=== PATIENT | female | born 1950 | race Caucasian/White ===

== ENCOUNTER 2018-01-23 18:04 | Emergency (ER) | payer MEDICARE, OTHER ==
[2018-01-23 18:47] LABS: CHLORIDE,CL 106 mmol/L (98-107); SODIUM,NA 143 mmol/L (136-145)
[2018-01-23] MEDS: Ondansetron 4 MG Tab.DIS PO ONE (19:03)
[2018-01-23] MEDS: Metoprolol Tartrate 25 MG Tab PO ONE (19:03)
[2018-01-23] MEDS: Ketorolac 60 MG/2 ML SDV IM ONE (19:04)
--- NOTE | 2018-01-23 19:15 | EDM.PDOC ---
ED HPI GENERAL MEDICAL PROBLEM - General Chief Complaint: General Stated Complaint: headache, high blood pressure Time Seen by Provider: 01/23/18 18:45 Source of Information: Reports: Patient History Limitations: Reports: No Limitations - History of Present Illness INITIAL COMMENTS - FREE TEXT/NARRATIVE: Patient comes in to ER complaining of headache and elevated BP. Has had similar headaches to this in the past and they too were associated with increased BP. Improved after staring BP medications. Also has chronic headaches related to cervical/neck issues. Recent neck surgery earlier this year. Headache is "all over". BP was running 150s-160s/100-115 Noted to slowly elevate all day. Headache and loose stools yesterday. She was wondering if she had developed mild viral illness. Mild nausea today. Took [place] last night and headache improved. Newcastle did not help headache today. Is performing colonoscopy prep today and thus continues to have loose stools. Unable to eat normally due to prep. Is not certain she took her blood pressure medication this morning. Denies focal neuro changes/numbness/tingling. No fevers/chills. No cold symptoms/cough/respiratory changes. Does have chronic neck/back issues but these are unchanged. No urinary changes. Feels this is her "usual" headache associated with elevated BP. No new changes in headache presentation. 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 Headache Pain Score (Numeric/FACES): 7 - Related Data Allergies Allergy/AdvReac Type Severity Reaction Status Date / Time oxycodone HCl [From Percocet] Allergy Tachycardia Verified 01/23/18 18:31 pentazocine lactate Allergy Tachycardia Verified 01/23/18 18:31 [From Talwin] propoxyphene HCl Allergy Tachycardia Verified 01/23/18 18:31 [From Darvon] propoxyphene napsylate Allergy Tachycardia Verified 01/23/18 18:31 [From Darvocet-N 100] Home Meds: Home Meds RX: Atenolol [Tenormin] 50 mg PO QAM 04/05/14 [History] RX: Lisinopril 10 mg PO QAM 04/05/14 [History] RX: Meloxicam 15 mg PO QAM 04/05/14 [History] RX: Omeprazole [Prilosec] 20 mg PO BID 04/05/14 [History] RX: Sennosides [Senna] 1 tab PO QAM 04/05/14 [History] RX: Magnesium Oxide 400 mg PO BID #60 tablet 04/07/14 [Rx] Mirabegron [Myrbetriq] 25 mg PO DAILY 01/23/18 [History] Past Medical History HEENT History: Reports: Impaired Vision Cardiovascular History: Reports: Blood Clots/VTE/DVT, High Cholesterol, Hypertension Gastrointestinal History: Reports: GERD Genitourinary History: Reports: Other (See Below) Other Genitourinary History: Overactive bladder Musculoskeletal History: Reports: Back Pain, Chronic, Neck Pain, Chronic, RA Endocrine/Metabolic History: Reports: Obesity/BMI 30+ - Past Surgical History GI Surgical History: Reports: Colonoscopy, Hernia Repair/Other Musculoskeletal Surgical History: Reports: Other (See Below) Other Musculoskeletal Surgeries/Procedures:: Back decompression 2016. neck surgery Jun 2017 Social & Family History - Tobacco Use Smoking Status *Q: Never Smoker - Caffeine Use Caffeine Use: Reports: Coffee, Soda - Recreational Drug Use Recreational Drug Use: No ED ROS GENERAL - Review of Systems Review Of Systems: ROS reveals no pertinent complaints other than HPI. ED EXAM, GENERAL - Physical Exam Exam: See Below Exam Limited By: No Limitations General Appearance: Alert, WD/WN, No Apparent Distress Eye Exam: Bilateral Eye: EOMI, PERRL Ears: Normal External Exam, Normal Canal, Hearing Grossly Normal, Other (TMs show scars from previous infections. No erythema/fluid noted. ) Nose: No: Nasal Deformity, Nasal Swelling, Nasal Drainage Throat/Mouth: Normal Inspection, Normal Lips, Normal Voice, No Airway Compromise , Other (missing several teeth) Head: Atraumatic, Normocephalic Neck: Normal Inspection, Supple, Non-Tender, Full Range of Motion Respiratory/Chest: No Respiratory Distress, Lungs Clear, Normal Breath Sounds, No Accessory Muscle Use Cardiovascular: Normal Peripheral Pulses, Regular Rate, Rhythm, No Murmur Peripheral Pulses: 2+: Radial (L), Radial (R) GI/Abdominal: Normal Bowel Sounds, Soft, Non-Tender, No Distention (Female) Exam: Deferred Rectal (Female) Exam: Deferred Back Exam: No: CVA Tenderness (L), CVA Tenderness (R), Muscle Spasm, Paraspinal Tenderness, Vertebral Tenderness Extremities: Normal Range of Motion, Non-Tender, Normal Capillary Refill, Pedal Edema (mild edema lower legs, left slightly more than right. ). No: Buck's Sign, Leg Pain, Redness Neurological: Alert, Oriented, CN II-XII Intact, Normal Cognition, Normal Reflexes, No Motor/Sensory Deficits Psychiatric: Normal Affect, Normal Mood Skin Exam: Warm, Dry, Intact, Normal Color Course - Vital Signs Last Recorded V/S: Last Vital Signs Temp 36.6 C 01/23/18 18:05 Pulse 63 01/23/18 19:47 Resp 18 01/23/18 18:05 BP 154/95 H 01/23/18 19:47 Pulse Ox 97 01/23/18 19:47 - Orders/Labs/Meds Labs: Laboratory Tests 01/23/18 01/23/18 01/23/18 Range/Units 18:21 18:25 18:25 WBC 8.5 (4.0-10.2) K/uL RBC 4.07 (3.77-5.09) M/uL Hgb 13.1 D (11.7-15.5) g/dL Hct 38.8 (34.0-46.0) % MCV 95.3 D (84.0-98.0) fL MCH 32.2 (28.2-33.3) pg MCHC 33.8 (31.7-36.0) g/dL RDW 12.1 (11.2-14.1) % Plt Count 228 (150-350) K/uL Neut % (Auto) 54.1 (45.0-80.0) % Lymph % (Auto) 33.1 (10.0-50.0) % [place] % (Auto) 10.8 (2.0-14.0) % Eos % (Auto) 1.5 (0.0-5.0) % Baso % (Auto) 0.5 (0.0-2.0) % Neut # (Auto) 4.57 (1.40-7.00) K/uL Lymph # (Auto) 2.80 (0.50-3.50) K/uL [place] # (Auto) 0.91 (0.00-1.00) K/uL Eos # (Auto) 0.13 (0.00-0.50) K/uL Baso # (Auto) 0.04 (0.00-0.20) K/uL Sodium 143 (136-145) mmol/L Potassium 3.9 (3.5-5.1) mmol/L Chloride 106 (98-107) mmol/L Carbon Dioxide 25.9 (21.0-32.0) mmol/L BUN 14 (7-18) mg/dL Creatinine 0.91 (0.51-1.17) mg/dL Est Cr Clr Drug Dosing 57.70 mL/min Estimated GFR (MDRD) > 60 mL/min Glucose 99 (74-106) mg/dL Calcium 9.3 (8.5-10.1) mg/dL Magnesium (1.8-2.4) mg/dL Total Bilirubin 0.5 (0.2-1.0) mg/dL AST 25 (15-37) U/L ALT 31 (12-78) U/L Alkaline Phosphatase 67 (46-116) IU/L Total Protein 7.4 (6.4-8.2) g/dL Albumin 3.8 (3.4-5.0) g/dL Specimen Type Urinvoid Urine Color Light yellow Urine Appearance Clear Urine pH 6.0 (5.0-9.0) Ur Specific [place] <= 1.005 (1.005-1.030) Urine Protein Negative (NEGATIVE) mg/dL Urine Glucose (UA) Negative (NEGATIVE) mg/dL Urine Ketones Negative (NEGATIVE) mg/dL Urine Occult Blood Negative (NEGATIVE) Urine Nitrite Negative (NEGATIVE) Urine Bilirubin Negative (NEGATIVE) Urine Urobilinogen 0.2 (0.2-1.0) E.U./dL Ur Leukocyte Esterase Negative (NEGATIVE) Urine RBC 0-5 /HPF Urine WBC Not seen /HPF Ur Epithelial Cells Rare /LPF Urine Bacteria Rare (NONE TO FEW) /HPF 01/23/18 Range/Units 18:25 WBC (4.0-10.2) K/uL RBC (3.77-5.09) M/uL Hgb (11.7-15.5) g/dL Hct (34.0-46.0) % MCV (84.0-98.0) fL MCH (28.2-33.3) pg MCHC (31.7-36.0) g/dL RDW (11.2-14.1) % Plt Count (150-350) K/uL Neut % (Auto) (45.0-80.0) % Lymph % (Auto) (10.0-50.0) % [place] % (Auto) (2.0-14.0) % Eos % (Auto) (0.0-5.0) % Baso % (Auto) (0.0-2.0) % Neut # (Auto) (1.40-7.00) K/uL Lymph # (Auto) (0.50-3.50) K/uL [place] # (Auto) (0.00-1.00) K/uL Eos # (Auto) (0.00-0.50) K/uL Baso # (Auto) (0.00-0.20) K/uL Sodium (136-145) mmol/L Potassium (3.5-5.1) mmol/L Chloride (98-107) mmol/L Carbon Dioxide (21.0-32.0) mmol/L BUN (7-18) mg/dL Creatinine (0.51-1.17) mg/dL Est Cr Clr Drug Dosing mL/min Estimated GFR (MDRD) mL/min Glucose (74-106) mg/dL Calcium (8.5-10.1) mg/dL Magnesium 1.8 (1.8-2.4) mg/dL Total Bilirubin (0.2-1.0) mg/dL AST (15-37) U/L ALT (12-78) U/L Alkaline Phosphatase (46-116) IU/L Total Protein (6.4-8.2) g/dL Albumin (3.4-5.0) g/dL Specimen Type Urine Color Urine Appearance Urine pH (5.0-9.0) Ur Specific [place] (1.005-1.030) Urine Protein (NEGATIVE) mg/dL Urine Glucose (UA) (NEGATIVE) mg/dL Urine Ketones (NEGATIVE) mg/dL Urine Occult Blood (NEGATIVE) Urine Nitrite (NEGATIVE) Urine Bilirubin (NEGATIVE) Urine Urobilinogen (0.2-1.0) E.U./dL Ur Leukocyte Esterase (NEGATIVE) Urine RBC /HPF Urine WBC /HPF Ur Epithelial Cells /LPF Urine Bacteria (NONE TO FEW) /HPF Meds: Medications Discontinued Medications Generic Name Dose Route Start Last Admin Trade Name Freq PRN Reason Stop Dose Admin Ketorolac Tromethamine 60 mg 01/23/18 18:56 01/23/18 19:04 Toradol IM 01/23/18 18:57 60 mg ONETIME ONE Administration Metoprolol Tartrate 25 mg 01/23/18 18:57 01/23/18 19:03 Lopressor PO 01/23/18 18:58 25 mg ONETIME ONE Administration Ondansetron HCl 4 mg 01/23/18 18:56 01/23/18 19:03 Zofran Odt PO 01/23/18 18:57 4 mg ONETIME ONE Administration - Re-Assessments/Exams Free Text/Narrative Re-Assessment/Exam: 01/23/18 19:19 Headache and BP improved on own once patient was resting on ER bed. BP noted to get more elevated when staff conversed with her. Headache now a "7". Patient given Toradol, Zofran, and Lopressor. Allowed to rest/observed. Free Text/Narrative Re-Assessment/Exam: 01/23/18 20:04 Patient feels improved. Headache is down to a 4. Able to void. BP improving. Uncertain if pt forgot her BP meds this morning. May have mild viral illness contributing to headache given loose stools and headache experienced yesterday. Headache and BP elevation likely exacerbated by having to undergo colonscopy prep throughout today and being unable to eat. Precautions reviewed prior to discharge. Departure - Departure Time of Disposition: 20:11 Disposition: Home, Self-Care 01 Condition: Good Clinical Impression: HTN, Benign essential hypertension - Discharge Information *PRESCRIPTION DRUG MONITORING PROGRAM REVIEWED*: Not Applicable *COPY OF PRESCRIPTION DRUG MONITORING REPORT IN PATIENT BRIANA: Not Applicable Instructions: Metoprolol tablets, Ondansetron oral dissolving tablet, Ketorolac injection Referrals: Edwina Ramirez PA-C [Primary Care Provider] - Forms: ED Department Discharge Additional Instructions: It is OK to continue with your prep for colonoscopy as directed. Follow up otherwise as needed if symptoms return.
[2018-01-23 20:04] VITALS: BP 154/95
== END 2018-01-23 20:22 | disposition home or self-care (01) ==
LOC: LL.ED 18:04
DX: I10 Essential (primary) hypertension (principal); E66.9 Obesity, unspecified; Z88.8 Allergy status to other drugs, medicaments and biological substances; Z79.899 Other long term (current) drug therapy
CPT/HCPCS: 36415; 80053; 81001; 83735; 85025; 96372; 99284; A9270-GY; J1885

== ENCOUNTER 2020-08-30 10:01 | Observation (INO) | payer MEDICARE, OTHER ==
[2020-08-30] MEDS ORDERED: Sodium Chloride 0.9% 10 ML Syringe FLUSH PRN ×2 (10:13→13:08)
[2020-08-30] MEDS ORDERED: Famotidine 20 MG/2 ML SDV IVPUSH ONE (10:13)
--- NOTE | 2020-08-30 10:13 | EDM.PDOC ---
ED HPI GENERAL MEDICAL PROBLEM - General Chief Complaint: General Stated Complaint: headache,diaphoresis,HTN Time Seen by Provider: 08/30/20 10:05 Source of Information: Reports: Patient, Old Records ([facility] chart/EMR), Other ([place] EMR) History Limitations: Reports: No Limitations - History of Present Illness INITIAL COMMENTS - FREE TEXT/NARRATIVE: The patient was brought to the emergency room by her friend, Audra, for evaluation of nonspecific 6/10 epigastric cramping associated with moderate diaphoresis, nausea, dizziness, and just not feeling well since about 10 PM yesterday evening. She did not check her blood sugars at home with no other hypoglycemic type symptoms. As a precaution the patient did take 2 sugar pills about 1 hour prior to arrival. The patient denies any chest pain/pressure, heart flutter, orthostasis, orthopnea, paresthesias, recent decreased exercise tolerance, or any other anginal-type symptoms. She has not taken her morning medications to this point. She also complains of a bilateral frontal headache. No history of recent visual changes, diplopia, change in mental status, or other change in neurological status. No recent history of abdominal pain, heartburn, emesis, diarrhea, melena, gross hematochezia, or any food intolerance, including fatty foods, etc. with a normal bowel movement earlier this morning. No history of colic, gross hematuria, or other UTI symptoms. The patient also denies any recent fever, cough, wheezing, dyspnea, etc.. Onset: Gradual Onset Date: 08/29/20 Onset Time: 10:00 Duration: Constant, Getting Worse Location: Reports: Head, Abdomen. Denies: Face, Neck, Chest, Back, Pelvis, Upper Extremity, Left, Upper Extremity, Right, Radiates to Quality: Reports: Same as Previous Episode, Other (As above) Severity: Moderate Improves with: Reports: None Worsens with: Reports: None Context: Reports: Other (As above). Denies: Sick Contact, Trauma Associated Symptoms: Reports: Diaphoresis, Headaches, Nausea/Vomiting (No emesis). 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: Other (see below) (None) - Related Data Allergies Allergy/AdvReac Type Severity Reaction Status Date / Time amoxicillin Allergy Rash Verified 08/30/20 11:27 oxycodone HCl [From Percocet] Allergy Tachycardia Verified 08/30/20 11:27 pentazocine lactate Allergy Tachycardia Verified 08/30/20 11:27 [From Talwin] propoxyphene HCl Allergy Tachycardia Verified 08/30/20 11:27 [From Darvon] propoxyphene napsylate Allergy Tachycardia Verified 08/30/20 11:27 [From Darvocet-N 100] Home Meds: Home Meds Lisinopril 10 mg PO QAM 04/05/14 [History] Meloxicam 15 mg PO QAM 04/05/14 [History] Omeprazole [Prilosec] 20 mg PO DAILY 04/05/14 [History] Sennosides [Senna] 1 tab PO QAM 04/05/14 [History] atenoloL [Tenormin] 50 mg PO QAM 04/05/14 [History] Magnesium Oxide 400 mg PO BID #60 tablet 04/07/14 [Rx] Gabapentin [Neurontin] 600 mg PO BID@0800,1600 03/28/18 [History] Methotrexate 4 tab PO Q7D@0800 03/28/18 [History] Cholecalciferol (Vitamin D3) [Vitamin D3] 25 mcg PO DAILY 08/30/20 [History] Folic Acid 0.4 mg PO DAILY 08/30/20 [History] Gabapentin [Neurontin] 900 mg PO BEDTIME 08/30/20 [History] Golimumab [Simponi] 50 mg SUBCUT Q30D 08/30/20 [History] Rosuvastatin [Crestor] 10 mg PO BEDTIME 08/30/20 [History] Vitamin E 400 unit PO DAILY 08/30/20 [History] Past Medical History HEENT History: Reports: Allergic Rhinitis, Impaired Vision, Other (See Below). Denies: Cataract, Glaucoma, Hard of Hearing, Macular Degeneration, Otitis Media, Retinal Detachment Other HEENT History: Patient wears glasses. Cardiovascular History: Reports: Blood Clots/VTE/DVT, High Cholesterol, Hypertension, PVD, Other (See Below). Denies: Afib, Aneurysm, Arrhythmia, CAD, Cardiomyopathy, Heart Failure, Heart Murmur, IL, Syncope Other Cardiovascular History: Dyslipidemia. History of postoperative DVT and right-sided PE in 2014 after extensive abdominal surgeries as below with subsequent Coumadin therapy however not currently. Subsequent chronic D-dimer elevation with negative work-up. Varicose veins. Respiratory History: Reports: Intubation, Previous, PE, Other (See Below). 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 Right-sided PE in 2014 as above. Gastrointestinal History: Reports: Bowel Obstruction, Cholelithiasis, Chronic Constipation, GERD, Other (See Below). Denies: Celiac Disease, Chronic Diarrhea, Colon Polyp, Diverticulosis, Gastritis, GI Bleed, Hepatitis, Hiatal Hernia, Inflammatory Bowel Disease, Irritable Bowel Syndrome, Jaundice, Bowers creatitis, PUD Other Gastrointestinal History: Recurrent small bowel obstructions requiring surgery as below. Genitourinary History: Reports: Urinary Incontinence, Other (See Below). Denies: Acute Renal Failure, Chronic Renal Insuffiency, Renal Calculus, Retention, Urinary, STD, UTI, Recurrent Other Genitourinary History: Mixed stress and urinary urge incontinence requiring surgeries as below. FILLING LAYER UP History: Reports: Dysfunctional Uterine Bleeding, Fibroids, . Denies: Endometriosis, Spontaneous : 4 Para: 4 LMP (Approximate): Other (See Below) Other FILLING LAYER UP History: Surgical menopause at age 42 secondary to dysfunctional uterine bleeding. Full term without complications during pregnancies or deliveries Musculoskeletal History: Reports: Arthritis, Back Pain, Chronic, Neck Pain, Chronic, Osteoarthritis, RA, Other (See Below). Denies: Amputation, Fracture, Gout, SLE Other Musculoskeletal History: Lumbar stenosis Neurological History: Reports: Headaches, Chronic, Neuropathy, Peripheral, Other (See Below). Denies: Cerebral Aneurysms, CVA, Head Trauma, Migraines, MS, Neuropathy, Diabetic, Parkinson's, Seizure, TIA, Vertigo Other Neuro History: Benign kinetic tremor. Psychiatric History: Reports: Addiction, Anxiety, Depression. Denies: Abuse, Victim of, ADD, ADHD, Psych Hospitalization(s), PTSD, Suicide Attempt, Suicidal Ideation Other Psychiatric History: Chronic narcotic use secondary to her rheumatoid arthritis. Endocrine/Metabolic History: Reports: Diabetes, Type II, Hypokalemia, Hypomagnesemia, Obesity/BMI 30+. Denies: Diabetes, Gestational, Diabetes, Type I, Diabetes Mellitus, Type 3c, Hypothyroidism, IDDM Hematologic History: Reports: Anemia. Denies: Blood Transfusion(s), Iron Deficiency Immunologic History: Reports: None. Denies: AIDS, HIV, SLE Oncologic (Cancer) History: Reports: Basal Cell Carcinoma, Other (See Below). Denies: Bladder, Breast, Cervix, Colon, Hodgkin's Lymphoma, Leukemia, Lymphoma, Malignant Melanoma, Non-Hodgkin's Lymphoma, Ovarian, Squamous Cell Carcinoma, Uterine Other Oncologic History: Recurrent basal cell carcinoma. Dermatologic History: Reports: None. Denies: Eczema, Psoriasis - Infectious Disease History Infectious Disease History: Reports: Chicken Pox, Helicobacter Pylori, Measles, Mumps, Novel Coronavirus (April 2020 with patient having received both of her Moderna subsequent immunizations last in July 2020.), Rubella. Denies: C- Difficile, Meningitis, Mononucleosis, MRSA, Pertussis (Whooping Cough), Scarlet Fever, Shingles, TB, VRE - Past Surgical History Head Surgeries/Procedures: Reports: None HEENT Surgical History: Reports: Naso-Sinus Surgery, Oral Surgery, Tonsillectomy, Other (See Below). Denies: Adenoidectomy, Cataract Surgery, Laser Surgery, LASIK, Myringotomy w Tube(s) Other HEENT Surgeries/Procedures: Multiple teeth extractions with partial upper dentures. Rhinoplasty at 43 years of age. Tonsillectomy at 19 years of age. Cardiovascular Surgical History: Reports: None. Denies: Varicose Respiratory Surgical History: Reports: None. Denies: Thoracentesis GI Surgical History: Reports: Cholecystectomy, Colonoscopy, EGD, Hernia, Abdominal, Lysis of Adhesions, Small Bowel, Other (See Below). Denies: Appendectomy, Hernia, Inguinal, Hernia Repair/Other, Polypectomy Other GI Surgeries/Procedures: Open cholecystectomy in 1989. Robotic assisted bilateral salpingo-oophorectomy with partial ileum dissection on 02/03/2015. Subsequent initial laparoscopic had been open abdominal adhesiolysis and small bowel resection on 02/05/2014 requiring subsequent abdominal wound closure on 02/12/2014. Ventral abdominal hernia repair on 07/30/2014. Last colonoscopy on 01/24/2018. EGD with negative biopsy on 04/04/2018. Ventral hernia repair on 07/30/2014. Female Surgical History: Reports: Hysterectomy, Salpingo-Oophorectomy, Tubal Ligation, Other (See Below). Denies: Section Other Female Surgeries/Procedures: Hysterectomy secondary to dysfunctional uterine bleeding at age 42. Bilateral salpingo-oophorectomy on 02/12/2014 as above. Bilateral tubal ligation at age 32. Phase 1 Interstim urethral neurostimulator on 06/10/2018 with subsequent phase II neurostimulator revisions on 06/26/2018 and 05/19/2020. Endocrine Surgical History: Reports: None. Denies: Thyroid Biopsy Neurological Surgical History: Reports: C-Spine, Discectomy, Laminectomy, Lumbar Spine, Spinal Fusion, Other (See Below). Denies: Sacral Spine, Thoracic Spine, Vertebroplasty Other Neurological Surgeries/Procedures: L3-L5 decompression including laminectomy and discectomy on 01/22/2017. C5-C7 anterior cervical fusion on 06/18/2017. Musculoskeletal Surgical History: Reports: Arthroscopic Knee, Arthroscopic Procedure, Carpal Tunnel, Ganglion Cyst, Shoulder Surgery, Other (See Below). Denies: Joint Replacement, ORIF Other Musculoskeletal Surgeries/Procedures:: Left knee medial partial meniscectomy arthroscopically on 06/26/2018. Left thumb arthroplasty on 03/09/2020. Right hand second, third, and fourth trigger finger release on 08/23/2015. Left hand third, fourth, and fifth trigger finger releases on 02/23/2015. Right shoulder arthroscopic surgery on 05/22/2002. Right carpal tunnel release in 2007 with left carpal tunnel release in June 2008. Previous right first finger arthroplasty and left hand ganglion cyst excision. Oncologic Surgical History: Reports: None Dermatological Surgical History: Reports: Skin Biopsy, Other (See Below) Other Dermatological Surgeries/Procedures: Multiple excisions of basal cell carcinomas including the forehead, left upper lip, and 6 times on her legs. - Past Imaging History Past Imaging History: Reports: RIVER Screen (07/29/2019), Cardiac Echo (02/06/2014 and stress echocardiograms as below.), Carotid US (05/12/2014), CAT Scan (Sinuses on 08/10/2020. Lumbar spine and C-spine with concomitant myelograms on 05/13/2020. Chest on 08/13/2019.), Mammogram (Last on 09/10/2019.), MRI (Right shoulder on 03/12/2012. Left shoulder 06/08/2020.), Stress Testing (Negative stress echocardiograms on 06/09/2020 and 01/29/2014. Negative Cardiolite stress test on 05/14/2014.), Ultrasound (Varicose vein of the legs bilaterally on 11/05/2019. Pelvic on 06/01/2010 and 03/10/2009), Venous Doppler (Bilateral legs on 02/05/2014. Right leg 02/25/2015) Social & Family History - Family History HEENT: Reports: None. Denies: Cataract, Glaucoma, Macular Degeneration Cardiac: Reports: CAD, High Cholesterol, Hypertension, IL, PVD/COD, Stent, Syncope, Other (See Below). Denies: Afib, Aneurysm, Arrhythmia, Blood Clots/VTE/DVT, Bypass, Cardiomyopathy, Heart Failure, Heart Murmur, Pacemaker Other Cardiac Family History: Mother with first IL in her 70s with fatal CABG surgery at age 75. Brother with IL in his late 50s. Another brother with PTCA/stent times one of the proximal LAD in his 70s. Hypertension and hyperlipidemia in mother. Brother with syncope related to COVID-19. Peripheral vascular disease requiring stent placement in the legs and her mother in her 70s and her sister. 2 other sisters with varicose veins. Respiratory: Reports: COPD, Sleep Apnea, Other (See Below). Denies: Asthma, PE, Pneumothorax Other Respiratory Family Hisory: Son with sleep apnea. Father with COPD with history of tobacco use. GI: Reports: Colon Polyps, Other (See Below). Denies: Celiac Disease, Cholelithiasis, GERD, GI bleed, Inflammatory Bowel Disease, Irritable Bowel Syndrome Other GI Family History: Brother with colon cancer as below. : Reports: None. Denies: Renal Calculus, Renal Disease/Insufficiency OBGYN: Reports: None. Denies: Endometriosis, Recurrent Spontaneous Musculoskeletal: Reports: None. Denies: Arthritis, Osteoarthritis, RA Neurological: Reports: CVA, Other (See Below). Denies: Alzheimers Disease, Cerebral Aneurysms, Dementia, Migraines, MS, Parkinson's, Seizure, TIA Other Neurological Family History: Mother with recurrent CVAs since her 60s. Psychiatric: Reports: None. Denies: Abuse, Victim of, ADD, ADHD, Anxiety, Depression, Psych Hospitalization(s), PTSD, Suicide Attempt Endocrine/Metabolic: Reports: Diabetes, type II, IDDM, Other (See Below). Denies: Diabetes, Gestational, Diabetes, Type I, Diabetes Mellitus, Type 3c, Hypothyroidism Other Endocrine/Metabolic Family History: IDDM and sister. Mother with AODM. Hematologic: Reports: None. Denies: Anemia, SLE Immunologic: Reports: None. Denies: AIDS, HIV, SLE Dermatologic: Reports: None. Denies: Eczema, Psoriasis Oncologic: Reports: Breast, Colon, Lung, Other (See Below). Denies: Cervix, Hodgkin's Lymphoma, Leukemia, Lymphoma, Non-Hodgkin's Lymphoma, Prostate, Skin, Uterine Other Oncologic Family History: Sister with breast cancer in her 70s. Sister with fatal lung cancer at age 49 with history of tobacco use. Brother with fatal colon cancer in his 50s. Brother with fatal stomach cancer in his 70s. - Tobacco Use Tobacco Use Status *Q: Never Tobacco User Tobacco Use Within Last Twelve Months: No Used Tobacco, but Quit: No Smoking Cessation Information Provided To Patient: No Second Hand Smoke Exposure: Yes Source of Second Hand Smoke Exposure: At work Second Hand Smoke Education Provided: No - Caffeine Use Caffeine Use: Reports: Coffee (4 cups/day), Soda (12 sodas per day). Denies: Energy Drinks - Alcohol Use Alcohol Use History: Yes Days Per Week of Alcohol Use: 1 Number of Drinks Per Day: 1 Number of Drinks Per Day Comment: Usually beer or mixed drinks. No previous DWIs, problems with alcohol abuse, etc. Total Drinks Per Week: 1 Alcohol Use in Last Twelve Months: Yes Alcohol Use Frequency: Weekly - Recreational Drug Use Recreational Drug Use: No Drug Use in Last 12 Months: No Recreational Drug Type: Denies: Amphetamines (Speed), Cocaine, Heroin, Inhalants (Glues, Solvents, Aerosols), LSD (Acid), Marijuana/Hashish, Methamphetamine, Morphine, Oxycodone - Living Situation & Occupation Living situation: Reports: (1993. 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 ED EXAM, GENERAL - Physical Exam Exam: See Below Exam Limited By: No Limitations General Appearance: Alert, WD/WN, No Apparent Distress, Anxious (Moderate) Eye Exam: Bilateral Eye: EOMI, Normal Fundi, Normal Inspection (The patient is wearing glasses. No vertigo or nystagmus.), PERRL Ears: Normal External Exam, Normal Canal, Hearing Grossly Normal, Normal TMs Nose: Normal Inspection, Normal Mucosa, No Blood Throat/Mouth: Normal Inspection, Normal Lips, Normal Teeth (Partial upper dentures), Normal Gums, Normal Oropharynx, Normal Voice, No Airway Compromise. No: Dysphagia, Inflammation, Perioral Cyanosis Head: Atraumatic, Normocephalic. No: Facial Swelling, Facial Tenderness, Sinus Tenderness Neck: Normal Inspection, Supple, Non-Tender, Full Range of Motion. No: Carotid Bruit, Lymphadenopathy (L), Lymphadenopathy (R), Thyromegaly Respiratory/Chest: No Respiratory Distress, Lungs Clear, Normal Breath Sounds, No Accessory Muscle Use, Chest Non-Tender. No: Pleural Rub, Retractions Cardiovascular: Normal Peripheral Pulses, Regular Rate, Rhythm, No Edema, No Gallop, No JVD, No Murmur, No Rub. No: Gallop/S3, Gallop/S4, Friction Rub Peripheral Pulses: 2+: Radial (L), Radial (R), Dorsalis Pedis (L), Dorsalis Pedis (R) GI/Abdominal: Normal Bowel Sounds, Soft, Non-Tender, No Organomegaly, No Distention, No Abnormal Bruit, No Mass, Pelvis Stable, Other (Large midline abdominal incisions. Obese). No: Guarding (Female) Exam: Deferred Rectal (Female) Exam: Deferred Extremities: Normal Inspection, Normal Range of Motion, Non-Tender, No Pedal Edema, Normal Capillary Refill. No: Buck's Sign Neurological: Alert, Oriented, CN II-XII Intact, Normal Cognition, Normal Gait, Normal Reflexes (Negative Babinski's), No Motor/Sensory Deficits Psychiatric: Anxious (Moderate), Depressed Mood (Mild to moderate) Skin Exam: Warm, Dry, Intact, Normal Color, No Rash. No: Diaphoretic, Wound/Incision Lymphatic: No Adenopathy #1 Interpretation EKG Date: 08/30/20 Time: 10:28 Rhythm: NSR Rate (Beats/Min): 68 Jay: Normal (Left) P-Wave: Present QRS: Normal (0.07 seconds) ST-T: Normal (With mild T wave inversion lead V1) QT: Normal OR/PQ Interval: 0.18 seconds Comparison: No Change (Last EKG on 04/07/2014.) EKG Interpretation Comments: No acute ischemic changes Course - Vital Signs Last Recorded V/S: Last Vital Signs Temp 36.2 C 08/30/20 11:02 Pulse 82 08/30/20 11:44 Resp 18 08/30/20 11:44 BP 133/91 H 08/30/20 11:44 Pulse Ox 97 08/30/20 11:44 Vital Signs - 24 hr 08/30/20 08/30/20 08/30/20 10:01 10:13 10:17 Temperature [ 35.9 C L 35.9 C L Temporal] Pulse, 79 67 Peripheral [ Left Pulse Oximetry] Respiratory 20 21 H Rate Blood Pressure 182/122 H Blood Pressure 182/122 H 146/100 H [Left Upper Arm ] O2 Sat by Pulse 100 100 Oximetry O2 Sat by Pulse 97 Oximetry [Room Air] 08/30/20 08/30/20 08/30/20 10:31 10:46 11:02 Temperature [ 36.2 C Temporal] Pulse, 63 66 69 Peripheral [ Left Pulse Oximetry] Respiratory 20 20 17 Rate Blood Pressure Blood Pressure 148/90 H 143/93 H 135/92 H [Left Upper Arm ] O2 Sat by Pulse 97 98 99 Oximetry O2 Sat by Pulse Oximetry [Room Air] 08/30/20 08/30/20 11:16 11:44 Temperature [ Temporal] Pulse, 71 82 Peripheral [ Left Pulse Oximetry] Respiratory 19 18 Rate Blood Pressure Blood Pressure 135/89 133/91 H [Left Upper Arm ] O2 Sat by Pulse 100 97 Oximetry O2 Sat by Pulse Oximetry [Room Air] - Orders/Labs/Meds Orders: Active Orders 24 hr Category Date Time Status Cardiac Monitoring [RC] . DIRECTED Care 08/30/20 10:13 Active EKG Documentation Completion [RC] ASDIRECTED Care 08/30/20 10:13 Active Oxygen Therapy, ED [RC] PRN Care 08/30/20 10:13 Active Peripheral IV Care [RC] . DIRECTED Care 08/30/20 10:13 Active Pulse Oximetry [RC] CONTINUOUS Care 08/30/20 10:13 Active Up With Assistance [RC] PFP Care 08/30/20 10:13 Active Vital Signs [RC] PFP Care 08/30/20 10:13 Active Nothing per Oral Now Diet [DIET] Diet 08/30/20 Breakfast Active Chest 1V Frontal [CR] Stat Exams 08/30/20 10:13 Ordered Lactated Ringers [Ringers, Lactated] 1,000 ml Med 08/30/20 11:28 Active IV .BOLUS Nitroglycerin [Nitrostat] Med 08/30/20 10:14 Stat 0.4 mg SL ONETIME STA Sodium Chloride 0.9% [Saline Flush] Med 08/30/20 10:13 Active 10 ml FLUSH ASDIRECTED PRN Isolation [COMM] Routine Oth 08/30/20 10:14 Active Obtain Past Medical Record [OM.PC] Urgent Oth 08/30/20 10:13 Active Peripheral IV Insertion Adult [OM.PC] Stat Oth 08/30/20 10:13 Ordered Resuscitation Status Stat Resus Stat 08/30/20 10:13 Ordered Medication Orders Lactated Ringer's (Ringers, Lactated) 1,000 mls @ 999 mls/hr IV .BOLUS ONE Stop: 08/30/20 12:28 Last Admin: 08/30/20 11:49 Dose: 999 mls/hr Documented by: COXTAM Nitroglycerin (Nitroglycerin 0.4 Mg Tab.Sl) 0.4 mg SL ONETIME STA Stop: 08/31/20 10:15 Last Admin: 08/30/20 10:17 Dose: 0.4 mg Documented by: COXTAM Sodium Chloride (Sodium Chloride 0.9% 10 Ml Syringe) 10 ml FLUSH ASDIRECTED PRN PRN Reason: Keep Vein Open Labs: Laboratory Tests 08/30/20 08/30/20 08/30/20 Range/Units 10:00 10:07 10:28 WBC 7.7 (4.0-10.2) K/uL RBC 3.75 L (3.77-5.09) M/uL Hgb 12.2 (11.7-15.5) g/dL Hct 36.5 (34.0-46.0) % MCV 97.3 (84.0-98.0) fL MCH 32.5 (28.2-33.3) pg MCHC 33.4 (31.7-36.0) g/dL RDW 14.6 H (11.2-14.1) % Plt Count 238 (150-350) K/uL Neut % (Auto) 50.8 (45.0-80.0) % Lymph % (Auto) 35.4 (10.0-50.0) % [place] % (Auto) 11.5 (2.0-14.0) % Eos % (Auto) 1.7 (0.0-5.0) % Baso % (Auto) 0.6 (0.0-2.0) % Neut # (Auto) 3.92 (1.40-7.00) K/uL Lymph # (Auto) 2.73 (0.50-3.50) K/uL [place] # (Auto) 0.89 (0.00-1.00) K/uL Eos # (Auto) 0.13 (0.00-0.50) K/uL Baso # (Auto) 0.05 (0.00-0.20) K/uL PT (9.5-12.0) SEC INR APTT (24.5-32.8) SEC D-Dimer, Quantitative (0-400) ng/mL Sodium (136-145) mmol/L Potassium (3.5-5.1) mmol/L Chloride (98-107) mmol/L Carbon Dioxide (21.0-32.0) mmol/L BUN (7-18) mg/dL Creatinine (0.51-1.17) mg/dL Est Cr Clr Drug Dosing Estimated GFR (MDRD) mL/min Glucose (70-99) mg/dL POC Glucose 104 H (70-99) mg/dL Lactic Acid (0.4-2.0) mmol/L Uric Acid (2.6-7.2) mg/dL Calcium (8.5-10.1) mg/dL Magnesium (1.8-2.4) mg/dL Total Bilirubin (0.2-1.0) mg/dL AST (15-37) U/L ALT (12-78) U/L Alkaline Phosphatase (46-116) IU/L Creatine Kinase (26-308) U/L Creatine Kinase Index (0.0-2.5) % CK-MB (CK-2) (0.00-3.60) ng/mL Troponin I (0.000-0.056) ng/mL NT-Pro-B Natriuret Pep (0-125) pg/mL Total Protein (6.4-8.2) g/dL Albumin (3.4-5.0) g/dL Amylase (25-115) U/L Lipase (73-393) U/L TSH, Ultra Sensitive (0.358-3.740) mIU/mL SARS-CoV-2 RNA (SARAH) Negative (NEGATIVE) 08/30/20 08/30/20 08/30/20 Range/Units 10:28 10:28 10:28 WBC (4.0-10.2) K/uL RBC (3.77-5.09) M/uL Hgb (11.7-15.5) g/dL Hct (34.0-46.0) % MCV (84.0-98.0) fL MCH (28.2-33.3) pg MCHC (31.7-36.0) g/dL RDW (11.2-14.1) % Plt Count (150-350) K/uL Neut % (Auto) (45.0-80.0) % Lymph % (Auto) (10.0-50.0) % [place] % (Auto) (2.0-14.0) % Eos % (Auto) (0.0-5.0) % Baso % (Auto) (0.0-2.0) % Neut # (Auto) (1.40-7.00) K/uL Lymph # (Auto) (0.50-3.50) K/uL [place] # (Auto) (0.00-1.00) K/uL Eos # (Auto) (0.00-0.50) K/uL Baso # (Auto) (0.00-0.20) K/uL PT 10.0 (9.5-12.0) SEC INR 1.0 APTT 21.4 L (24.5-32.8) SEC D-Dimer, Quantitative 586 H (0-400) ng/mL Sodium 141 (136-145) mmol/L Potassium 3.8 (3.5-5.1) mmol/L Chloride 107 (98-107) mmol/L Carbon Dioxide 23.3 (21.0-32.0) mmol/L BUN 22 H (7-18) mg/dL Creatinine 0.85 (0.51-1.17) mg/dL Est Cr Clr Drug Dosing TNP Estimated GFR (MDRD) > 60 mL/min Glucose 107 H (70-99) mg/dL POC Glucose (70-99) mg/dL Lactic Acid (0.4-2.0) mmol/L Uric Acid 5.1 (2.6-7.2) mg/dL Calcium 8.7 (8.5-10.1) mg/dL Magnesium 1.6 L (1.8-2.4) mg/dL Total Bilirubin 0.4 (0.2-1.0) mg/dL AST 22 (15-37) U/L ALT 40 (12-78) U/L Alkaline Phosphatase 40 L (46-116) IU/L Creatine Kinase 66 (26-308) U/L Creatine Kinase Index 1.1 (0.0-2.5) % CK-MB (CK-2) 0.70 (0.00-3.60) ng/mL Troponin I 0.000 (0.000-0.056) ng/mL NT-Pro-B Natriuret Pep 28 (0-125) pg/mL Total Protein 6.4 (6.4-8.2) g/dL Albumin 3.4 (3.4-5.0) g/dL Amylase 31 (25-115) U/L Lipase 98 (73-393) U/L TSH, Ultra Sensitive 2.705 (0.358-3.740) mIU/mL SARS-CoV-2 RNA (SARAH) (NEGATIVE) 08/30/20 Range/Units 10:28 WBC (4.0-10.2) K/uL RBC (3.77-5.09) M/uL Hgb (11.7-15.5) g/dL Hct (34.0-46.0) % MCV (84.0-98.0) fL MCH (28.2-33.3) pg MCHC (31.7-36.0) g/dL RDW (11.2-14.1) % Plt Count (150-350) K/uL Neut % (Auto) (45.0-80.0) % Lymph % (Auto) (10.0-50.0) % [place] % (Auto) (2.0-14.0) % Eos % (Auto) (0.0-5.0) % Baso % (Auto) (0.0-2.0) % Neut # (Auto) (1.40-7.00) K/uL Lymph # (Auto) (0.50-3.50) K/uL [place] # (Auto) (0.00-1.00) K/uL Eos # (Auto) (0.00-0.50) K/uL Baso # (Auto) (0.00-0.20) K/uL PT (9.5-12.0) SEC INR APTT (24.5-32.8) SEC D-Dimer, Quantitative (0-400) ng/mL Sodium (136-145) mmol/L Potassium (3.5-5.1) mmol/L Chloride (98-107) mmol/L Carbon Dioxide (21.0-32.0) mmol/L BUN (7-18) mg/dL Creatinine (0.51-1.17) mg/dL Est Cr Clr Drug Dosing Estimated GFR (MDRD) mL/min Glucose (70-99) mg/dL POC Glucose (70-99) mg/dL Lactic Acid 2.2 H (0.4-2.0) mmol/L Uric Acid (2.6-7.2) mg/dL Calcium (8.5-10.1) mg/dL Magnesium (1.8-2.4) mg/dL Total Bilirubin (0.2-1.0) mg/dL AST (15-37) U/L ALT (12-78) U/L Alkaline Phosphatase (46-116) IU/L Creatine Kinase (26-308) U/L Creatine Kinase Index (0.0-2.5) % CK-MB (CK-2) (0.00-3.60) ng/mL Troponin I (0.000-0.056) ng/mL NT-Pro-B Natriuret Pep (0-125) pg/mL Total Protein (6.4-8.2) g/dL Albumin (3.4-5.0) g/dL Amylase (25-115) U/L Lipase (73-393) U/L TSH, Ultra Sensitive (0.358-3.740) mIU/mL SARS-CoV-2 RNA (SARAH) (NEGATIVE) Microbiology 08/30/20 10:00 Influenza Type A Antigen Screen - Final Nasal, Unspecified NEGATIVE INFLUENZA A VIRUS AG REFERENCE RANGE: NEGATIVE Influenza Type B Antigen Screen - Final NEGATIVE INFLUENZA B VIRUS AG REFERENCE RANGE: NEGATIVE Meds: Medications Generic Name Dose Route Start Last Admin Trade Name Freq PRN Reason Stop Dose Admin Lactated Ringer's 1,000 mls @ 999 mls/hr 08/30/20 11:28 08/30/20 11:49 Ringers, Lactated IV 08/30/20 12:28 999 mls/hr .BOLUS ONE Administration Nitroglycerin 0.4 mg 08/30/20 10:14 08/30/20 10:17 Nitroglycerin 0.4 Mg Tab.Sl SL 08/31/20 10:15 0.4 mg ONETIME STA Administration Sodium Chloride 10 ml 08/30/20 10:13 Sodium Chloride 0.9% 10 Ml Syringe FLUSH ASDIRECTED PRN Keep Vein Open Discontinued Medications Generic Name Dose Route Start Last Admin Trade Name Freq PRN Reason Stop Dose Admin Famotidine 40 mg 08/30/20 10:13 08/30/20 10:17 Famotidine 20 Mg/2 Ml Sdv IVPUSH 08/30/20 10:14 40 mg ONETIME ONE Administration - Radiology Interpretation Free Text/Narrative:: mammal keeper shows normal sinus rhythm with heart rate in the 60s to 80s with no ectopy or arrhythmia. Chest x-ray, portable, shows evidence of moderate pulmonary obstructive disease with mild prominence of the proximal aortic arch but no significant cardiomegaly, CHF, pulmonary infiltrates, pneumothorax, etc. Departure - Departure Time of Disposition: 12:45 Disposition: Admitted As Inpatient 68 Clinical Impression: Peptic reflux disease, Hypomagnesemia, HTN, Benign essential hypertension, Mixed anxiety depressive disorder, Dyslipidemia, D-dimer, elevated, Elevated lactic acid level Abdominal pain Qualifiers: Abdominal location: epigastric Qualified Code(s): R10.13 - Epigastric pain COPD (chronic obstructive pulmonary disease) Qualifiers: COPD type: emphysema Emphysema type: panlobular Qualified Code(s): J43.1 - Panlobular emphysema Diabetes mellitus Qualifiers: Diabetes mellitus type: type 2 Diabetes mellitus group home insulin use: without group home use Diabetes mellitus complication status: without complication Qualified Code(s): E11.9 - Type 2 diabetes mellitus without complications Rheumatoid arthritis Qualifiers: Rheumatoid arthritis location: multiple sites Rheumatoid factor presence: unspecified presence Qualified Code(s): M06.9 - Rheumatoid arthritis, unspecified - Discharge Information *PRESCRIPTION DRUG MONITORING PROGRAM REVIEWED*: Not Applicable *COPY OF PRESCRIPTION DRUG MONITORING REPORT IN PATIENT BRIANA: Not Applicable Referrals: Edwina Ramirez PA-C [Primary Care Provider] - Forms: ED Department Discharge Care Plan Goals: See plan Sepsis Event Note (ED) - Focused Exam Vital Signs: Vital Signs Temp Pulse Resp BP BP Pulse Ox Pulse Ox 08/30/20 11:44 82 18 133/91 H 97 08/30/20 11:16 71 19 135/89 100 08/30/20 11:02 36.2 C 69 17 135/92 H 99 08/30/20 10:46 66 20 143/93 H 98 08/30/20 10:31 63 20 148/90 H 97 08/30/20 10:17 182/122 H 08/30/20 10:13 35.9 C L 67 21 H 146/100 H 100 97 08/30/20 10:01 35.9 C L 79 20 182/122 H 100 - Problem List & Annotations (1) Abdominal pain SNOMED Code(s): 57435690 Code(s): R10.9 - UNSPECIFIED ABDOMINAL PAIN Status: Acute Priority: High Current Visit: Yes Onset Date: 08/30/20 Annotation/Comment:: Atypical epigastric pain associated with diaphoresis, nausea, etc. with concerns of a possible atypical unstable angina. Chest pain protocol was not initiated in the emergency room, although initiate standard rule out [place] orders. Cardiology consultation depending on her clinical course. Note long history of chronic nonspecific abdominal pain with multiple surgeries as below. Amylase and lipase are normal. Consider abdominal x-rays depending on her clinical course. Qualifiers: Abdominal location: epigastric Qualified Code(s): R10.13 - Epigastric pain (2) Elevated lactic acid level SNOMED Code(s): 4826533 Code(s): R79.89 - OTHER SPECIFIED ABNORMAL FINDINGS OF BLOOD CHEMISTRY Status: Acute Priority: High Current Visit: Yes Onset Date: 08/30/20 Annotation/Comment:: No fever or evidence of sepsis either clinically or by physical exam. 1 L IV bolus of lactated Ringer's given in the emergency room with repeat lactic acid level with next set of cardiac enzymes. (3) HTN, Benign essential hypertension SNOMED Code(s): 9959625 Code(s): I10 - ESSENTIAL (PRIMARY) HYPERTENSION Status: Chronic Priority: Medium Current Visit: Yes Annotation/Comment:: Blood pressure is severely elevated at time of arrival to the emergency room with some anxious component. Excellent results with sublingual nitroglycerin tablet, although this did make her chronic headache somewhat worse. No neurological deficits or evidence of CVA. Note that the patient did not take her medications prior to arrival in the emergency room. (4) D-dimer, elevated SNOMED Code(s): 788778776 Code(s): R79.89 - OTHER SPECIFIED ABNORMAL FINDINGS OF BLOOD CHEMISTRY Status: Chronic Priority: Medium Current Visit: Yes Annotation/Comment:: Note history of chronic D-dimer elevation as above. Further work-up depending on her clinical course. Low-dose subcu Lovenox as DVT prophylaxis. No clinical evidence of DVT or PE at this time. (5) Hypomagnesemia SNOMED Code(s): 279940555 Code(s): E83.42 - HYPOMAGNESEMIA Status: Acute Priority: Medium Current Visit: Yes Annotation/Comment:: Patient did not take her medications this morning. Dosage adjustment depending on her clinical course. (6) Peptic reflux disease SNOMED Code(s): 439041346 Code(s): K21.9 - GASTRO-ESOPHAGEAL REFLUX DISEASE WITHOUT ESOPHAGITIS Status: Chronic Priority: Medium Current Visit: Yes Annotation/Comment:: Stable by history. High-dose IV Pepcid given as GI prophylaxis. (7) Mixed anxiety depressive disorder SNOMED Code(s): 497550372 Code(s): F41.8 - OTHER SPECIFIED ANXIETY DISORDERS Status: Chronic Priority: Medium Current Visit: Yes Annotation/Comment:: Moderate control based on today's exam. Continue to observe closely. (8) COPD (chronic obstructive pulmonary disease) SNOMED Code(s): 33449193 Code(s): J44.9 - CHRONIC OBSTRUCTIVE PULMONARY DISEASE, UNSPECIFIED Status: Chronic Priority: Medium Current Visit: Yes Annotation/Comment:: COPD by chest x-ray with no current medical therapy or recent history of fever, cough, or other bronchitic type symptoms. Note previous COVID-19 infection and immunization as above Qualifiers: COPD type: emphysema Emphysema type: panlobular Qualified Code(s): J43.1 - Panlobular emphysema (9) Diabetes mellitus SNOMED Code(s): 19689195 Code(s): E11.9 - TYPE 2 DIABETES MELLITUS WITHOUT COMPLICATIONS Status: Chronic Priority: Medium Current Visit: Yes Annotation/Comment:: Stat Accu-Chek on arrival did not indicate any hypoglycemia, however note two sugar tablets were taken prior to patient's arrival to this facility. Continue to observe closely with glycosylated hemoglobin in the a.m. Weight loss in moderation is advisable. Qualifiers: Diabetes mellitus type: type 2 Diabetes mellitus group home insulin use: without terminal carman use Diabetes mellitus complication status: without complication Qualified Code(s): E11.9 - Type 2 diabetes mellitus without complications (10) Dyslipidemia SNOMED Code(s): 446610425 Code(s): E78.5 - HYPERLIPIDEMIA, UNSPECIFIED Status: Chronic Priority: Medium Current Visit: Yes Annotation/Comment:: Lipid panel in the a.m. (11) Rheumatoid arthritis SNOMED Code(s): 87795984 Code(s): M06.9 - RHEUMATOID ARTHRITIS, UNSPECIFIED Status: Chronic Prior ity: Medium Current Visit: Yes Annotation/Comment:: Stable by history. Qualifiers: Rheumatoid arthritis location: multiple sites Rheumatoid factor presence: unspecified presence Qualified Code(s): M06.9 - Rheumatoid arthritis, unspecified - Problem List Review Problem List Initiated/Reviewed/Updated: Yes - My Orders Last 24 Hours: My Active Orders 08/30/20 Breakfast Nothing per Oral Now Diet [DIET] 08/30/20 10:13 Cardiac Monitoring [RC] . DIRECTED EKG Documentation Completion [RC] ASDIRECTED Oxygen Therapy, ED [RC] PRN Peripheral IV Care [RC] . DIRECTED Pulse Oximetry [RC] CONTINUOUS Up With Assistance [RC] PFP Vital Signs [RC] PFP Chest 1V Frontal [CR] Stat Sodium Chloride 0.9% [Saline Flush] 10 ml FLUSH ASDIRECTED PRN Obtain Past Medical Record [OM.PC] Urgent Peripheral IV Insertion Adult [OM.PC] Stat Resuscitation Status Stat 08/30/20 10:14 Nitroglycerin [Nitrostat] 0.4 mg SL ONETIME STA Isolation [COMM] Routine 08/30/20 11:28 Lactated Ringers [Ringers, Lactated] 1,000 ml IV .BOLUS - Assessment/Plan Admission H&P: Please use this note as an admission H&P Last 24 Hours: My Active Orders 08/30/20 Breakfast Nothing per Oral Now Diet [DIET] 08/30/20 10:13 Cardiac Monitoring [RC] . DIRECTED EKG Documentation Completion [RC] ASDIRECTED Oxygen Therapy, ED [RC] PRN Peripheral IV Care [RC] . DIRECTED Pulse Oximetry [RC] CONTINUOUS Up With Assistance [RC] PFP Vital Signs [RC] PFP Chest 1V Frontal [CR] Stat Sodium Chloride 0.9% [Saline Flush] 10 ml FLUSH ASDIRECTED PRN Obtain Past Medical Record [OM.PC] Urgent Peripheral IV Insertion Adult [OM.PC] Stat Resuscitation Status Stat 08/30/20 10:14 Nitroglycerin [Nitrostat] 0.4 mg SL ONETIME STA Isolation [COMM] Routine 08/30/20 11:28 Lactated Ringers [Ringers, Lactated] 1,000 ml IV .BOLUS Assessment:: As above Plan: As above. Extensive precautions were given to the patient, who is in agreement with the treatment plan. The patient's condition is stable enough for observation status and general supervision. new car inspector provider assumes care in the a.m.
[2020-08-30] MEDS ORDERED: Nitroglycerin 0.4 MG Tab.SL SL STA (10:14)
[2020-08-30 10:48] LABS: PTT,PARTIAL THROMBOPLSTIN TIME 21.4 SEC (24.5-32.8)
[2020-08-30 10:57] LABS: CHLORIDE,CL 107 mmol/L (98-107); SODIUM,NA 141 mmol/L (136-145)
[2020-08-30] MEDS ORDERED: Lactated Ringers 1,000 ML IV ONE (11:28)
[2020-08-30] MEDS ORDERED: Temazepam 15 MG Cap PO PRN (13:08)
[2020-08-30] MEDS ORDERED: Enoxaparin 60 MG/0.6 ML Syringe SUBCUT SCH (13:15)
[2020-08-30] MEDS: Enoxaparin 40 MG/0.4 ML Syringe SUBCUT SCH (14:39)
[2020-08-30] MEDS: Magnesium Oxide 400 MG Tab PO SCH ×2 (14:39→17:24)
[2020-08-30] MEDS: Lisinopril 10 MG Tab PO SCH (14:40)
[2020-08-30] MEDS: Atenolol 50 MG Tab PO SCH (14:40)
[2020-08-30] MEDS: Gabapentin 300 MG Cap PO SCH ×2 (14:41→16:05)
[2020-08-30] MEDS: Famotidine 20 MG/2 ML SDV IVPUSH SCH ×2 (14:42→17:24)
[2020-08-30] MEDS: Acetaminophen 325 MG Tab PO PRN ×2 (14:45→20:00)
[2020-08-30] MEDS ORDERED: Rosuvastatin 10 MG Tab PO SCH (20:00)
[2020-08-30] MEDS ORDERED: Gabapentin 300 MG Cap PO SCH (20:00)
[2020-08-31] MEDS: Acetaminophen 325 MG Tab PO PRN ×2 (01:33→07:41)
[2020-08-31] MEDS: Magnesium Oxide 400 MG Tab PO SCH (07:35)
[2020-08-31] MEDS: Gabapentin 300 MG Cap PO SCH (07:36)
[2020-08-31] MEDS: Lisinopril 10 MG Tab PO SCH (07:37)
[2020-08-31] MEDS: Atenolol 50 MG Tab PO SCH (07:37)
[2020-08-31] MEDS: Famotidine 20 MG/2 ML SDV IVPUSH SCH (07:39)
[2020-08-31] MEDS ORDERED: Non-Formulary Medication 1 Each (Folic Acid [Folic Acid] 0.4 MG Tablet) PO SCH (08:00)
[2020-08-31] MEDS ORDERED: Cholecalciferol (Vitamin D3) 25 MCG Tab PO SCH (08:00)
[2020-08-31] MEDS ORDERED: Sennosides 8.6 MG Tab PO SCH (08:00)
[2020-08-31 08:42] LABS: CHLORIDE,CL 108 mmol/L (98-107); SODIUM,NA 142 mmol/L (136-145)
[2020-08-31 12:45] VITALS: BP 124/69; PULSE 73
[2020-08-31] MEDS: Enoxaparin 40 MG/0.4 ML Syringe SUBCUT SCH (13:26)
[2020-08-31] MEDS ORDERED: Loperamide 2 MG Tab PO ONE (13:36)
--- NOTE | 2020-08-31 13:43 | PCM.DCSUM1 ---
Discharge Summary - Hospital Course Brief History: Admitted for further evaluation of epigastric pain and headache Diagnosis: Stroke: No - Discharge Data Discharge Date: 08/31/20 Discharge Disposition: Home, Self-Care 01 Condition: Good - Referral to Home Health Primary Care Physician: Edwina Ramirez PA-C - Discharge Diagnosis/Problem(s) (1) Abdominal pain SNOMED Code(s): 08781490 ICD Code: R10.9 - UNSPECIFIED ABDOMINAL PAIN Status: Acute Priority: High Current Visit: Yes Onset Date: 08/30/20 Problem Details: Suspect acute gastroenteritis. Patient developed loose stools yesterday afternoon after observation admission. Headache/epigastric cramping/loose stools suggestive of this etiology. Initial atypical epigastric pain associated with diaphoresis, nausea, etc. with concerns of a possible atypical unstable angina. Chest pain protocol was not initiated in the emergency room, although initiated standard rule out MO orders after admission. Note long history of chronic nonspecific abdominal pain with multiple surgeries as below. Amylase and lipase are normal. Qualifiers: Abdominal location: epigastric Qualified Code(s): R10.13 - Epigastric pain (2) Elevated lactic acid level SNOMED Code(s): 4683903 ICD Code: R79.89 - OTHER SPECIFIED ABNORMAL FINDINGS OF BLOOD CHEMISTRY Status: Acute Priority: High Current Visit: Yes Onset Date: 08/30/20 Problem Details: No fever or evidence of sepsis either clinically or by physical exam. 1 L IV bolus of lactated Ringer's given in the emergency room. Repeat lactic acid level normalized (3) Hypomagnesemia SNOMED Code(s): 622741893 ICD Code: E83.42 - HYPOMAGNESEMIA Status: Acute Priority: Medium Current Visit: Yes Problem Details: Patient did not take her medications this morning. To continue magnesium supplementation (4) COPD (chronic obstructive pulmonary disease) SNOMED Code(s): 46964331 ICD Code: J44.9 - CHRONIC OBSTRUCTIVE PULMONARY DISEASE, UNSPECIFIED Status: Chronic Priority: Medium Current Visit: Yes Problem Details: COPD by chest x-ray with no current medical therapy or recent history of fever, cough, or other bronchitic type symptoms. Note previous COVID-19 infection and immunization as above Qualifiers: COPD type: emphysema Emphysema type: panlobular Qualified Code(s): J43.1 - Panlobular emphysema (5) D-dimer, elevated SNOMED Code(s): 147521792 ICD Code: R79.89 - OTHER SPECIFIED ABNORMAL FINDINGS OF BLOOD CHEMISTRY Status: Chronic Priority: Medium Current Visit: Yes Problem Details: Note history of chronic D-dimer elevation as above. Further work-up depending on her clinical course. Low-dose subcu Lovenox as DVT prophylaxis. No clinical evidence of DVT or PE at this time. (6) Diabetes mellitus SNOMED Code(s): 53905868 ICD Code: E11.9 - TYPE 2 DIABETES MELLITUS WITHOUT COMPLICATIONS Status: Chronic Priority: Medium Current Visit: Yes Problem Details: Stat Accu- Chek on arrival did not indicate any hypoglycemia, however note two sugar tablets were taken prior to patient's arrival to this facility. Continue to observe closely with glycosylated hemoglobin in the a.m. Weight loss in moderation is advisable. Qualifiers: Diabetes mellitus type: type 2 Diabetes mellitus usp insulin use: without ad terminal makeup operator use Diabetes mellitus complication status: without complication Qualified Code(s): E11.9 - Type 2 diabetes mellitus without complications (7) Dyslipidemia SNOMED Code(s): 692165075 ICD Code: E78.5 - HYPERLIPIDEMIA, UNSPECIFIED Status: Chronic Priority: Medium Current Visit: Yes Problem Details: Lipid panel overall within good range (8) HTN, Benign essential hypertension SNOMED Code(s): 9167250 ICD Code: I10 - ESSENTIAL (PRIMARY) HYPERTENSION Status: Chronic Priority : Medium Current Visit: Yes Problem Details: Blood pressure is severely elevated at time of arrival to the emergency room with some anxious component. Excellent results with sublingual nitroglycerin tablet, although this did make her chronic headache somewhat worse. No neurological deficits or evidence of CVA. Note that the patient did not take her medications prior to arrival in the emergency room. BP stable throughout rest of stay (9) Mixed anxiety depressive disorder SNOMED Code(s): 180357717 ICD Code: F41.8 - OTHER SPECIFIED ANXIETY DISORDERS Status: Chronic Priority: Medium Current Visit: Yes Problem Details: Moderate control based on today's exam. (10) Peptic reflux disease SNOMED Code(s): 447779237 ICD Code: K21.9 - GASTRO-ESOPHAGEAL REFLUX DISEASE WITHOUT ESOPHAGITIS Status: Chronic Priority: Medium Current Visit: Yes Problem Details: Stable by history. High-dose IV Pepcid given as GI prophylaxis. (11) Rheumatoid arthritis SNOMED Code(s): 22407514 ICD Code: M06.9 - RHEUMATOID ARTHRITIS, UNSPECIFIED Status: Chronic Priority: Medium Current Visit: Yes Problem Details: Stable by history. Qualifiers: Rheumatoid arthritis location: multiple sites Rheumatoid factor presence: unspecified presence Qualified Code(s): M06.9 - Rheumatoid arthritis, unspecified - Patient Summary/Data Hospital Course: Patient's cardiac labs repeated throughout stay and remained within normal range. Patient developed very loose/watery stools yesterday afternoon. Overall is feeling better however and requests discharge home. Cites dentist appointment at 3pm today. Precautions reviewed/potential etiologies reviewed. Patient will return prn sudden worsening symptoms. - Patient Instructions Diet: Anti-Inflammatory Activity: As Tolerated Driving: May Drive Today Showering/Bathing: May Shower Notify Provider of: Fever, Increased Pain, Nausea and/or Vomiting Other/Special Instructions: Take it easy today. OK to try additional Imodium as needed to help with loose stools. Return for re-evaluation if this does not follow a normal anticipated viral course. Increase your magnesium supplementati on dose as you are still low. - Discharge Plan *PRESCRIPTION DRUG MONITORING PROGRAM REVIEWED*: Not Applicable *COPY OF PRESCRIPTION DRUG MONITORING REPORT IN PATIENT BRIANA: Not Applicable Home Medications: Home Meds Lisinopril 10 mg PO QAM 04/05/14 [History] Meloxicam 15 mg PO QAM 04/05/14 [History] Omeprazole [Prilosec] 20 mg PO DAILY 04/05/14 [History] Sennosides [Senna] 1 tab PO QAM 04/05/14 [History] atenoloL [Tenormin] 50 mg PO QAM 04/05/14 [History] Magnesium Oxide 400 mg PO BID #60 tablet 04/07/14 [Rx] Gabapentin [Neurontin] 600 mg PO BID@0800,1600 03/28/18 [History] Methotrexate 4 tab PO Q7D@0800 03/28/18 [History] Cholecalciferol (Vitamin D3) [Vitamin D3] 25 mcg PO DAILY 08/30/20 [History] Folic Acid 0.4 mg PO DAILY 08/30/20 [History] Gabapentin [Neurontin] 900 mg PO BEDTIME 08/30/20 [History] Golimumab [Simponi] 50 mg SUBCUT Q30D 08/30/20 [History] Rosuvastatin [Crestor] 10 mg PO BEDTIME 08/30/20 [History] Vitamin E 400 unit PO DAILY 08/30/20 [History] Forms: ED Department Discharge Referrals: Edwina Ramirez PA-C [Primary Care Provider] - - Discharge Summary/Plan Comment DC Time >30 min.: No - General Info Date of Service: 08/31/20 Admission Dx/Problem (Free Text: Headache/epigastric pain Subjective Update: Feeling better but now has loose stools - Review of Systems General: Denies: Fever, Weakness, Fatigue, Malaise, Chills, Night Sweats HEENT: Reports: Headaches. Denies: Ear Pain, Eye Pain, Sinus Congestion, Sore Throat, Rhinitis, Visual Changes Pulmonary: Denies: Shortness of Breath, Pleuritic Chest Pain, Cough, Sputum, Hemoptysis, Wheezing Cardiovascular: Denies: Chest Pain, Palpitations, Lightheadedness Gastrointestinal: Reports: Diarrhea. Denies: Abdominal Pain, Melena, Nausea, Vomiting Genitourinary: Reports: No Symptoms Musculoskeletal: Reports: Other (no acute changes from baseline) Skin: Reports: No Symptoms Neurological: Reports: Headache. Denies: Confusion, Dizziness, Numbness, Paresthesia, Difficulty Walking, Weakness, Change in Speech Psychiatric: Reports: No Symptoms - Patient Data Vitals - Most Recent: Last Vital Signs Temp 36.7 C 08/31/20 12:00 Pulse 73 08/31/20 12:00 Resp 20 08/31/20 12:00 BP 124/69 08/31/20 12:00 Pulse Ox 98 08/31/20 12:00 Weight - Most Recent: 79.832 kg I&O - Last 24 hours: Intake & Output 08/30/20 08/31/20 08/31/20 22:59 06:59 14:59 Intake Total 120 480 Balance 120 480 Lab Results - Last 24 hrs: Laboratory Results - last 24 hr 08/30/20 08/30/20 08/30/20 Range/Units 13:08 14:36 14:36 WBC (4.0-10.2) K/uL RBC (3.77-5.09) M/uL Hgb (11.7-15.5) g/dL Hct (34.0-46.0) % MCV (84.0-98.0) fL MCH (28.2-33.3) pg MCHC (31.7-36.0) g/dL RDW (11.2-14.1) % Plt Count (150-350) K/uL Neut % (Auto) (45.0-80.0) % Lymph % (Auto) (10.0-50.0) % [place] % (Auto) (2.0-14.0) % Eos % (Auto) (0.0-5.0) % Baso % (Auto) (0.0-2.0) % Neut # (Auto) (1.40-7.00) K/uL Lymph # (Auto) (0.50-3.50) K/uL [place] # (Auto) (0.00-1.00) K/uL Eos # (Auto) (0.00-0.50) K/uL Baso # (Auto) (0.00-0.20) K/uL D-Dimer, Quantitative (0-400) ng/mL Sodium (136-145) mmol/L Potassium (3.5-5.1) mmol/L Chloride (98-107) mmol/L Carbon Dioxide (21.0-32.0) mmol/L BUN (7-18) mg/dL Creatinine (0.51-1.17) mg/dL Est Cr Clr Drug Dosing mL/min Estimated GFR (MDRD) mL/min Glucose (70-99) mg/dL Hemoglobin A1c (4.3-5.7) % Lactic Acid 1.0 (0.4-2.0) mmol/L Calcium (8.5-10.1) mg/dL Magnesium (1.8-2.4) mg/dL Total Bilirubin (0.2-1.0) mg/dL AST (15-37) U/L ALT (12-78) U/L Alkaline Phosphatase (46-116) IU/L Creatine Kinase 56 (26-308) U/L Creatine Kinase Index 1.4 (0.0-2.5) % CK-MB (CK-2) 0.80 (0.00-3.60) ng/mL Troponin I 0.000 (0.000-0.056) ng/mL Total Protein (6.4-8.2) g/dL Albumin (3.4-5.0) g/dL Triglycerides (30-150) mg/dL Cholesterol (100-200) mg/dL LDL Cholesterol, Calc (0-100) mg/dL HDL Cholesterol (40-60) mg/dL Specimen Type Urinvoid Urine Color Yellow Urine Appearance Clear Urine pH 7.0 (5.0-9.0) Ur Specific [place] 1.015 (1.005-1.030) Urine Protein Negative (NEGATIVE) mg/dL Urine Glucose (UA) Negative (NEGATIVE) mg/dL Urine Ketones Negative (NEGATIVE) mg/dL Urine Occult Blood Negative (NEGATIVE) Urine Nitrite Negative (NEGATIVE) Urine Bilirubin Negative (NEGATIVE) Urine Urobilinogen 0.2 (0.2-1.0) E.U./dL Ur Leukocyte Esterase Negative (NEGATIVE) Urine RBC Not seen /HPF Urine WBC Not seen /HPF Ur Epithelial Cells Occasional /LPF Urine Bacteria Not seen (NONE TO FEW) /HPF 08/30/20 08/31/20 08/31/20 Range/Units 20:20 07:15 07:15 WBC 7.3 (4.0-10.2) K/uL RBC 3.61 L (3.77-5.09) M/uL Hgb 11.8 (11.7-15.5) g/dL Hct 35.8 (34.0-46.0) % MCV 99.2 H (84.0-98.0) fL MCH 32.7 (28.2-33.3) pg MCHC 33.0 (31.7-36.0) g/dL RDW 15.0 H (11.2-14.1) % Plt Count 233 (150-350) K/uL Neut % (Auto) 44.6 L (45.0-80.0) % Lymph % (Auto) 41.2 (10.0-50.0) % [place] % (Auto) 10.4 (2.0-14.0) % Eos % (Auto) 3.4 (0.0-5.0) % Baso % (Auto) 0.4 (0.0-2.0) % Neut # (Auto) 3.27 (1.40-7.00) K/uL Lymph # (Auto) 3.02 (0.50-3.50) K/uL [place] # (Auto) 0.76 (0.00-1.00) K/uL Eos # (Auto) 0.25 (0.00-0.50) K/uL Baso # (Auto) 0.03 (0.00-0.20) K/uL D-Dimer, Quantitative 234 (0-400) ng/mL Sodium (136-145) mmol/L Potassium (3.5-5.1) mmol/L Chloride (98-107) mmol/L Carbon Dioxide (21.0-32.0) mmol/L BUN (7-18) mg/dL Creatinine (0.51-1.17) mg/dL Est Cr Clr Drug Dosing mL/min Estimated GFR (MDRD) mL/min Glucose (70-99) mg/dL Hemoglobin A1c (4.3-5.7) % Lactic Acid (0.4-2.0) mmol/L Calcium (8.5-10.1) mg/dL Magnesium (1.8-2.4) mg/dL Total Bilirubin (0.2-1.0) mg/dL AST (15-37) U/L ALT (12-78) U/L Alkaline Phosphatase (46-116) IU/L Creatine Kinase 54 (26-308) U/L Creatine Kinase Index 1.3 (0.0-2.5) % CK-MB (CK-2) 0.70 (0.00-3.60) ng/mL Troponin I 0.000 (0.000-0.056) ng/mL Total Protein (6.4-8.2) g/dL Albumin (3.4-5.0) g/dL Triglycerides (30-150) mg/dL Cholesterol (100-200) mg/dL LDL Cholesterol, Calc (0-100) mg/dL HDL Cholesterol (40-60) mg/dL Specimen Type Urine Color Urine Appearance Urine pH (5.0-9.0) Ur Specific [place] (1.005-1.030) Urine Protein (NEGATIVE) mg/dL Urine Glucose (UA) (NEGATIVE) mg/dL Urine Ketones (NEGATIVE) mg/dL Urine Occult Blood (NEGATIVE) Urine Nitrite (NEGATIVE) Urine Bilirubin (NEGATIVE) Urine Urobilinogen (0.2-1.0) E.U./dL Ur Leukocyte Esterase (NEGATIVE) Urine RBC /HPF Urine WBC /HPF Ur Epithelial Cells /LPF Urine Bacteria (NONE TO FEW) /HPF 08/31/20 08/31/20 Range/Units 07:15 07:15 WBC (4.0-10.2) K/uL RBC (3.77-5.09) M/uL Hgb (11.7-15.5) g/dL Hct (34.0-46.0) % MCV (84.0-98.0) fL MCH (28.2-33.3) pg MCHC (31.7-36.0) g/dL RDW (11.2-14.1) % Plt Count (150-350) K/uL Neut % (Auto) (45.0-80.0) % Lymph % (Auto) (10.0-50.0) % [place] % (Auto) (2.0-14.0) % Eos % (Auto) (0.0-5.0) % Baso % (Auto) (0.0-2.0) % Neut # (Auto) (1.40-7.00) K/uL Lymph # (Auto) (0.50-3.50) K/uL [place] # (Auto) (0.00-1.00) K/uL Eos # (Auto) (0.00-0.50) K/uL Baso # (Auto) (0.00-0.20) K/uL D-Dimer, Quantitative (0-400) ng/mL Sodium 142 (136-145) mmol/L Potassium 3.8 (3.5-5.1) mmol/L Chloride 108 H (98-107) mmol/L Carbon Dioxide 26.9 (21.0-32.0) mmol/L BUN 13 (7-18) mg/dL Creatinine 0.89 (0.51-1.17) mg/dL Est Cr Clr Drug Dosing 57.42 mL/min Estimated GFR (MDRD) > 60 mL/min Glucose 102 H (70-99) mg/dL Hemoglobin A1c 6.0 H (4.3-5.7) % Lactic Acid (0.4-2.0) mmol/L Calcium 8.5 (8.5-10.1) mg/dL Magnesium 1.7 L (1.8-2.4) mg/dL Total Bilirubin 0.4 (0.2-1.0) mg/dL AST 22 (15-37) U/L ALT 36 (12-78) U/L Alkaline Phosphatase 37 L (46-116) IU/L Creatine Kinase 44 (26-308) U/L Creatine Kinase Index 1.4 (0.0-2.5) % CK-MB (CK-2) 0.60 (0.00-3.60) ng/mL Troponin I 0.000 (0.000-0.056) ng/mL Total Protein 6.0 L (6.4-8.2) g/dL Albumin 3.2 L (3.4-5.0) g/dL Triglycerides 218 H (30-150) mg/dL Cholesterol 173 (100-200) mg/dL LDL Cholesterol, Calc 77 (0-100) mg/dL HDL Cholesterol 52 (40-60) mg/dL Specimen Type Urine Color Urine Appearance Urine pH (5.0-9.0) Ur Specific [place] (1.005-1.030) Urine Protein (NEGATIVE) mg/dL Urine Glucose (UA) (NEGATIVE) mg/dL Urine Ketones (NEGATIVE) mg/dL Urine Occult Blood (NEGATIVE) Urine Nitrite (NEGATIVE) Urine Bilirubin (NEGATIVE) Urine Urobilinogen (0.2-1.0) E.U./dL Ur Leukocyte Esterase (NEGATIVE) Urine RBC /HPF Urine WBC /HPF Ur Epithelial Cells /LPF Urine Bacteria (NONE TO FEW) /HPF ANGIE Results - Last 24 hrs: Microbiology 08/30/20 17:50 Stool Occult Blood (ANGIE) - Final Stool / Feces NEGATIVE OCCULT BLOOD REFERENCE RANGE: NEGATIVE 08/30/20 10:00 Influenza Type A Antigen Screen - Final Nasal, Unspecified NEGATIVE INFLUENZA A VIRUS AG REFERENCE RANGE: NEGATIVE Influenza Type B Antigen Screen - Final NEGATIVE INFLUENZA B VIRUS AG REFERENCE RANGE: NEGATIVE Med Orders - Current: Current Medications Acetaminophen (Acetaminophen 325 Mg Tab) 650 mg PO Q4H PRN PRN Reason: Pain Last Admin: 08/31/20 07:41 Dose: 650 mg Documented by: Atenolol (Atenolol 50 Mg Tab) 50 mg PO QAM [facility] Last Admin: 08/31/20 07:37 Dose: 50 mg Documented by: Cholecalciferol (Cholecalciferol (Vitamin D3) 25 Mcg Tab) 25 mcg PO DAILY [facility] Last Admin: 08/31/20 07:36 Dose: 25 mcg Documented by: Enoxaparin Sodium (Enoxaparin 40 Mg/0.4 Ml Syringe) 40 mg SUBCUT Q24H [facility] Last Admin: 08/31/20 13:26 Dose: Not Given Documented by: Famotidine (Famotidine 20 Mg/2 Ml Sdv) 20 mg IVPUSH BID [facility] Last Admin: 08/31/20 07:39 Dose: 20 mg Documented by: Gabapentin (Gabapentin 300 Mg Cap) 900 mg PO BEDTIME [facility] Last Admin: 08/30/20 20:00 Dose: 900 mg Documented by: Gabapentin (Gabapentin 300 Mg Cap) 600 mg PO BID@0800,1600 [facility] Last Admin: 08/31/20 07:36 Dose: 600 mg Documented by: Lisinopril (Lisinopril 10 Mg Tab) 10 mg PO QAM [facility] Last Admin: 08/31/20 07:37 Dose: 10 mg Documented by: Loperamide HCl (Loperamide 2 Mg Tab) 4 mg PO ONETIME ONE Stop: 08/31/20 13:37 Magnesium Oxide (Magnesium Oxide 400 Mg Tab) 400 mg PO BID [facility] Last Admin: 08/31/20 07:35 Dose: 400 mg Documented by: Non-Formulary Medication (Folic Acid [Folic Acid]) 0.4 mg PO DAILY [facility] Rosuvastatin Calcium (Rosuvastatin 10 Mg Tab) 10 mg PO BEDTIME [facility] Last Admin: 08/30/20 20:00 Dose: 10 mg Documented by: Senna (Sennosides 8.6 Mg Tab) 8.6 mg PO QAM [facility] Last Admin: 08/31/20 07:36 Dose: 8.6 mg Documented by: Sodium Chloride (Sodium Chloride 0.9% 10 Ml Syringe) 10 ml FLUSH ASDIRECTED PRN PRN Reason: Keep Vein Open Last Admin: 08/31/20 07:41 Dose: 10 ml Documented by: Sodium Chloride (Sodium Chloride 0.9% 10 Ml Syringe) 10 ml FLUSH Q12HR PRN PRN Reason: Keep Vein Open Temazepam (Temazepam 15 Mg Cap) 15 mg PO BEDTIME PRN PRN Reason: Insomnia Last Admin: 08/30/20 20:00 Dose: 15 mg Documented by: Discontinued Medications Enoxaparin Sodium (Enoxaparin 60 Mg/0.6 Ml Syringe) 4 mg SUBCUT Q24H [facility] Last Admin: 08/30/20 15:33 Dose: Not Given Documented by: Famotidine (Famotidine 20 Mg/2 Ml Sdv) 40 mg IVPUSH ONETIME ONE Stop: 08/30/20 10:14 Last Admin: 08/30/20 10:17 Dose: 40 mg Documented by: Lactated Ringer's (Ringers, Lactated) 1,000 mls @ 999 mls/hr IV .BOLUS ONE Stop: 08/30/20 12:28 Last Admin: 08/30/20 11:49 Dose: 999 mls/hr Documented by: Magnesium Sulfate/Dextrose 1 (gm/ Premix) 100 mls @ 100 mls/hr IV ONETIME ONE Stop: 08/31/20 13:32 Last Admin: 08/31/20 13:26 Dose: Not Given Documented by: Nitroglycerin (Nitroglycerin 0.4 Mg Tab.Sl) 0.4 mg SL ONETIME STA Stop: 08/31/20 10:15 Last Admin: 08/30/20 10:17 Dose: 0.4 mg Documented by: #1 Interpretation EKG Date: 08/31/20 Time: 07:28 Rhythm: NSR Rate (Beats/Min): 62 [place]: Normal P-Wave: Present QRS: Normal ST-T: Normal QT: Normal Comparison: No Change
== END 2020-08-31 14:15 | disposition home or self-care (01) ==
LOC: LL.ED 10:01 → LL.MS 12:45
PROVIDERS: ADMIT Family Medicine; ATTEND Family Medicine
DX: R10.13 Epigastric pain (principal); R79.89 Other specified abnormal findings of blood chemistry; E83.42 Hypomagnesemia; J43.1 Panlobular emphysema; E11.9 Type 2 diabetes mellitus without complications; E78.5 Hyperlipidemia, unspecified; I10 Essential (primary) hypertension; M06.9 Rheumatoid arthritis, unspecified; K21.9 Gastro-esophageal reflux disease without esophagitis; Z20.822 Contact with and (suspected) exposure to COVID-19; Z79.899 Other long term (current) drug therapy; Z88.1 Allergy status to other antibiotic agents; Z88.5 Allergy status to narcotic agent; Z88.8 Allergy status to other drugs, medicaments and biological substances
CPT/HCPCS: 36415; 71045; 74018; 80053; 80061; 81001; 82150; 82272; 82550; 82553; 82947; 83036; 83605; 83690; 83735; 83880; 84443; 84484; 84550; 85025; 85379; 85610; 85730; 87045; 87046; 87086; 87328; 87329; 87338; 87804; 93005; 93010; 96372; 96374; 96376; 99223; 99238; 99285-25; A9270-GY; G0378; J1650; J3490; J7120; U0002

== ENCOUNTER → 2020-11-04 | Day surgery (SDC) | payer MEDICARE, OTHER ==
--- OUTSIDE RECORDS SUMMARY | 2020-11-03 12:50 | XMSREPORT | Referral Summary ---
:[address] [facility] s Address [address] [place] [address] Care Team Providers Name Role Phone JOHN Velarde Unavailable MAGDIEL Overton Referring Physician Yoni Ramirez PA-C Primary Care Provider Yoni Ramirez PA-C Attributed Provider Reason for Referral Transitions of Care (Routine) Status Reason Specialty Diagnoses / Referred By Referred To Procedures Contact Contact New Request Service Not Diagnoses Other dysphagia Epigastric pain Edwina Ramirez, Health, Chi Available [facility] [address] [place] [address] [place] [id number] Phone: Fax: Reason for Visit Reason Comments Abdominal Pain x 6 weeks Encounter Details Date Type Department Care Team Description 10/26/2020 Office Visit Edwina Ramirez, Other dyspha meghana (Primary Dx); [facility] Epigastric pain [address] [place] [address] [place] [address] [place] [address] [phone] Allergies Active Allergy Reactions Severity Noted Date Comments Amoxicillin Rash 07/02/2017 Atorvastatin Other (Specify in Comments) 11/29/2018 myalgias Propoxyphene N-Apap Tachycardia 01/19/2012 Propoxyphene Hcl Tachycardia 01/19/2012 Oxycodone-Acetaminophen Tachycardia 01/19/2012 Pentazocine Tachycardia 01/19/2012 documented as of this encounter (statuses as of 10/26/2020) Medications Medication Sig Dispensed Refills Start End Status Date Date senna (SENOKOT) 8.6 MG Take 8.6 mg by 0 Active TABS mouth At bedtime as needed for constipation CALCIUM CARBONATE PO Take 1 tablet by 0 Active mouth 1 time per day acetaminophen (TYLENOL) Take 650 mg by 0 Active 325 mg tablet mouth every 4 to 6 hours as needed for mild pain B Complex Vitamins Take 1 capsule by 0 Active (VITAMIN B COMPLEX) mouth 1 time per capsule day Not taking folic acid 1 mg Take 1 tablet (1 90 tablet 3 Active tabletIndications: mg) by mouth 1 0 Seronegative rheumatoid time per day arthritis of multiple sites (HCC) docusate sodium (COLACE) Take 1 capsule 30 capsule 0 Active 100 mg (100 mg) by mouth 1 capsuleIndications: 2 times a day as Mixed stress and urge needed for urinary incontinence constipation. tiZANidine (ZANAFLEX) 2 Take 1 tablet (2 30 tablet 0 Active mg tabletIndications: mg) by mouth Every 1 Nocturnal leg cramps 12 hours as needed for muscle spasm Ergocalciferol (VITAMIN Take 1 tablet by 0 Active D2 PO) mouth 1 time per day omega-3 fatty acids Take 1,000 mg by 0 Active (FISH OIL) 1000 mg mouth 1 time per capsule day meloxicam (MOBIC) 15 mg TAKE 1 TABLET (15 90 tablet 2 07/13/19 2 Active tabletIndications: MG) BY MOUTH 1 1 Seronegative rheumatoid TIME PER DAY arthritis of multiple sites (HCC) lisinopril (PRINIVIL, TAKE 1 TABLET (10 90 tablet 2 Active ZESTRIL) 10 mg MG) BY MOUTH 1 1 tabletIndications: TIME PER DAY Essential hypertension atenolol (TENORMIN) 50 TAKE 1 TABLET (50 90 tablet 2 Active mg tabletIndications: MG) BY MOUTH 1 1 Essential hypertension TIME PER DAY methotrexate 2.5 mg TAKE 4 TABLETS (10 48 tablet 0 Active tabletIndications: MG) BY MOUTH 1 1 Seronegative rheumatoid TIME A WEEK arthritis of multiple sites (HCC) ipratropium (ATROVENT) Orient 2 sprays 90 mL 0 Active 0.03 % nasal into each nostril 1 sprayIndications: 3 times a day Chronic rhinitis rosuvastatin (CRESTOR) TAKE 1 TABLET (10 90 tablet 2 Active 10 mg tabletIndications: MG) BY MOUTH EVERY 1 Pure NIGHT AT BEDTIME hypercholesterolemia omeprazole (PRILOSEC) 40 TAKE 1 CAPSULE (40 90 capsule 0 10/11 Active mg capsuleIndications: MG) BY MOUTH 1 1 Gastroesophageal reflux TIME A DAY IN THE disease without MORNING esophagitis gabapentin (NEURONTIN) TAKE 2 CAPSULES 630 capsule 0 Active 300 mg (600MG) BY MOUTH 1 capsuleIndications: IN THE MORNING, 2 Neuropathy, Seronegative CAPSULES (600MG) rheumatoid arthritis of DURING THE DAY AND multiple sites (HCC), 3 CAPSULES (900MG) Encounter for long-term AT NIGHT. (current) use of medications rOPINIRole (REQUIP) 0.25 Take 0.25 mg by 0 Active mg tablet mouth 1 time per 1 day ENBREL SURECLICK 50 Inject 1 mL (50 4 mL 2 10/06/ Active MG/ML for subcutaneous mg) subcutaneously 1 022 injectionIndications: 1 time a week Seronegative rheumatoid arthritis of multiple sites (HCC) traMADol (ULTRAM) 50 mg Take 1 tablet 2 60 tablet 1 Active tabletIndications: times a day as 1 Arthralgia of both hands needed for pain. documented as of this encounter (statuses as of 10/26/2020) Active Problems Problem Noted Date Obesity with body mass index of 30.0-39.9 06/16/2020 Chest pain 06/08/2020 Basal cell carcinoma of face 09/03/2018 Prediabetes 08/22/2018 Neck pain 06/24/2018 Kinetic tremor 07/02/2017 Spondylosis of cervical region without myelopathy or r adiculopathy 03/21/2017 Spondylosis with myelopathy, lumbar region 01/23/2017 DDD (degenerative disc disease), lumbar 07/20/2016 Arthralgia 06/05/2016 Neuropathy 05/24/2016 Primary osteoarthritis involving multiple joints 05/24 Gastroesophageal reflux disease without esophagitis Right hand pain 03/02/2016 Seronegative rheumatoid arthritis of multiple sites Lumbar stenosis 12/25/2013 Low back pain 12/25/2013 Lumbar pain with radiation down left leg 12/25/2013 Lung nodule 09/22/2013 Mixed stress and urge urinary incontinence 08/26/2013 Essential hypertension 06/26/2003 Pure hypercholesterolemia documented as of this encounter (statuses as of 10/26/2020) Resolved Problems Problem Noted Date Resolved Date Incontinence of feces 12/28/2017 09/19/2019 S/P cervical spinal fusion 06/18/2017 09/19/2019 Overview: C5-7 ANTERIOR CERVICAL DISCECTOMY AND FU AMISH 06/18/[address] Rhodes S/P lumbar spine operation 01/24/2017 09/19/2019 Overview: L3-L5 LUMBAR DECOMPRESSION 01/22/[address] Rhodes Trigger point with back pain 06/05/2016 09/19/2019 Ventral hernia 07/31/2014 04/13/2015 Leukocytosis 02/12/2014 04/13/2015 Bilateral pulmonary embolism 02/05/2014 04/13/2015 Ovarian mass 02/04/2014 04/13/2015 Pelvic mass 12/23/2013 04/13/2015 Overview: CC: Post operative exam HPI: Kathleen Fletcher is a 63yr old female who underwent a Robotic bilateral salpingo-oophorectomy, left ureterolysis by Dr. Chappell, small bowel resection with anastomosis by general surgery (Dr. Simon) on 02/03/2014 for a pelvic mass. 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 Her post operative course was quite complicated. On POD #2 she complained of increasing right sided kristina st pain. A CT of the chest/abdomen/pelvi s showed a complex abdominal fluid collection that was suspicious for a developing abscess, bilateral small PEs and small bilateral pleural effusions. She was sta rted on anticoagulation. A drain was ord ered to be placed by IR, but as the patient was being transferred to IR, she developed hypotension with increased complaints of abdominal pain. She proceeded to b e transferred to the SICU for further ev aluation and management. On this same day, the patient was taken back to the OR on to undergo a diagnostic laparoscopy with possible bowel resection/conversion to open with placement of wound vac for pe ritonitis/pelvic fluid collection. The patient was placed on IV Levaquin and Flagyl for peritonitis. The patient was placed on Coumadin for the bilateral PEs. On 02/12/2014, the patient was taken to the OR for an abdominal wound closure. The ABX regimen was changed to Diflucan and Zosyn a few days later based upon culture sensitivities (02/13 Abdominal Culture + for Tiera albicans). The patient was approved for a wound vac and home health was arranged and she was discharged home on 02/20. She was sent home on coumadin for anticoagulation due to pulmonary emb olism. She continued on antibiotics at the time of discharge as well. Assessment and Plan: Kathleen Fletcher is doing well postop after Robotic bilateral salpingo-oophorectomy, left ureterolysis by Dr. Chappell, small bowel resection with anastomosis by general surgery (Dr. Simon) for a benign seromucinous cystadenofibroma. We recommend refraining from vaginal int ercourse, tampons, douching etc for 8-10 weeks postoperatively to allow the vaginal cuff to fully heal. Thank you for allowing me to participate in the care of this very pleasant patient. Ms Fletcher may return to the care of her primary physician, though we would certainly be happy to see her back should any concerns or problems arise. CC: Current Providers Care Team Provider: Felicita Velarde PA, ([phone]) Care Team Provider: Abhishek Overton CN P, ([phone]) Other affections of shoulder region, not elsewhere classifie d 04/11/2012 12/23/2013 Tendonitis of wrist, left 03/27/2012 12/23/2013 Hand tendonitis 02/28/2012 02/27/2013 Ganglion 01/31/2010 12/23/2013 Other and unspecified ovarian cyst 03/15/200904/13 documented as of this encounter (statuses as of 10/26/2020) Immunizations Name Administration Dates Next Due FLU VACCINE HIGH DOSE 65YR+(Fluzone) 02/19/2019, 03/20/2018 FLU VACCINE MULTIDOSE 02/18/2015, 03/17/2014 0.5mL(6MO+Fluzone/Flulaval,Afluria) FLU VACCINE SINGLE DOSE 03/15/2017, 03/14/2016 0.5mL(6MO+Fluzone/Flulaval/Fluarix,3YR +Afluria) H1N1 Vaccine W/preservative 3yr+ 06/10/2009 Influenza Vaccine,unspecified 02/13/2020, 02/18/2015, 2013, 02/06/2013, 03/15/2010 Moderna COVID-19 Vaccine 07/05/2020, 06/07/2020 Pneumococcal Conj PCV13 04/13/2015 Pneumococcal Polysaccharide PPSV23 03/20/2018 TDAP 03/10/2010 Td(adult)preservative free 02/13/2020 Zoster Live(Zostavax) 06/01/2015 Zoster Recombinant (Shingrix) 04/27/2020, 02/13/2020 documented as of this encounter Social History Tobacco Use Types Packs/Day Years Used Date Never Smoker Smokeless Tobacco: Never Used Comments: 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 2-3 times a week 06/25/2020 How many drinks containing alcohol do you have on a 1 or 2 03/19/2018 typical day when you are drinking? How often do you have six or more drinks on one Not asked occasion? 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 Is this person blind or does he/she have difficulty No 06/24/2018 seeing even when wearing glasses? Do you have difficulty with walking, balance, climbing No 06/09/2020 stairs, or had a fall in the last 3 months? Does the patient have difficulty dressing or bathing? No 06/06/2018 Because of a physical, mental, or emotional condition; No 06/06/2018 does this person have difficulty doing errands alone such as visiting a doctor's office or shopping? Cognitive Status Response Date of Assessment Because of a physical, mental, or emotional condition; No 06/06/2018 does this person have serious difficulty concentrating, remembering, or making decisions? documented as of this encounter Plan of Treatment Date Type Specialty Care Team Description 10/27/2020 Appointment Radiology Aftab Velasco MD [address] [place] [address] [phone] 12/01/2020 Ancillary Procedure Radiology 12/01/2020 Office Visit Neurosurgery Saravanan Colmenares M D [address] [place] [address] [phone] 12/22/2020 Office Visit Neurology Leanne Means MD [address] [place] [address] [phone] 02/10/2021 Office Visit Dermatology Denis Barney MD [address] [place] [address] [phone] 03/02/2021 Office Visit Rheumatology Henrique Kline MD [address] [facility] [address] [place] [address] [phone] Garrett Hatch PA-C [address] [facility] [address] [place] [address] [phone] Name Type Priority Associated Diagnoses Order S chedule CLINIC REFERRAL Referral Routine Other dysphagia Ordered: 10/26/2020 ENDOSCOPY NON ONE CHART Epigastric pain documented as of this encounter Implants Implanted Type Area Inspector Toys Device Shelf Model / Identifier Expiration Serial / Date Lot Mesh Flt 10x14 N [id number] Ea - [id number] General N/A: BARD DAVOL 05/06/2018 [id number] / Implanted: Qty: 1 on 07/30/2014 by Almas Salcedo MD at [facility] Implant [id number] / [id number] Description:Verified per Dr. Benjamin Env Neuro Absorb Antibact N [id number] Ea1 - [id number] Michelet rology Right: BUTTOCKS MEDTRONIC 01/09/2021 [id number] / Implanted: Qty: 1 on 05/19/2020 by Shakir Morales ams, MD at [facility] / [id number] Sys Tightrope Mini Cmc1.1mm N Ar-[id number] Ea1 - [id number] Ort ho Other Left: THUMB ARTHREX 01/04/2025 [id number] / Implanted: Qty: 1 on 03/09/2020 by Lori bertrand, Al Edwards MD at [facility] / [id number] Lead Interstim Test N 3057 Ea - [id number] Urology MEDTRON IC 08/31/2019 3057 / Implanted: Qty: 1 on 06/10/2018 by Gaby paul, Karan Cornelius MD at [facility] / [id number] Lead Stim Mri Surscan 28cm N [id number] Ea1 - [id number] Urology Right: SACRUM MEDTRONIC [id number] / Implanted: Qty: 1 on 05/19/2020 by Shakir Morales ams, MD at [facility] COCCYX / Stim Urol Interstim Micro N 48590 Ea1 - [id number] Urology Right: BUTTOCKS MEDTRONIC [id number] / Implanted: Qty: 1 on 05/19/2020 by Shakir Morales ams, MD at [facility] / Description:Model 14968 InterStim Micro SureScan MRI rechargeable neurostimulator Model 978A1 SureScan lead For 1.5T scanners: remote will tell you if device is fully body eligible. maxium gradient slew rate is less than or equal to 200T/m/s, maximum spatial field gradient 20 T/m, B1 ankush less than or equal to 3. scan time is 30 minutes in a [address] window. pt needs remote to activate MRI mode on device If eligible, 3-Jasmin (T) and 1.5-T MR Co nditional Check "ELIGIBILITY IDENTIFICATION" on pa ClassDojo 12 before scanning. Ask the patient to recharge the neurosti mulator before the MRI appointment. Allo Dbm Putty Mtf 1ml N [id number] Ea - [id number] N /A: MUSCULOSKELETAL 12/31/2018 [id number] / Implanted: Qty: 1 on 06/18/2017 by Tristian Rhodes MD at [facility] CERVICAL TRANSPLANT [id number] / SPINE Description:Demineralized bone matrix im plant acknowledged and verified by Dr. Rhodes. Cage Cornerstone [id number] N [id number] Ea1 - [id number] N/A: CERVICAL SPINE MEDTRONIC 02/27/2025 [id number] / Implanted: Qty: 1 on 06/18/2017 by Tristian Rhodes MD at [facility] / [id number] Description:Verified and acknowledged by Dr. Rhodes. Cage Cornerstone [id number] N [id number] Ea1 - [id number] N/A: CERVICAL SPINE MEDTRONIC 01/06/2022 [id number] / Implanted: Qty: 1 on 06/18/2017 by Tristian Rhodes MD at [facility] / [id number] Description:Correct dimensions are 7 mm x 14 mm x 11 mm. Implant acknowledged and verified by Dr. Rhodes. Screw Chadwicks Slfdr [id number] N [id number] Ea1 - [id number] N/A: CERVICAL SPINE MEDTRONIC [id number] / Implanted: Qty: 6 on 06/18/2017 by Tristian Rhodes MD at [facility] / Description:Verified and acknowledged by Dr. Rhodes. Plate Chadwicks Vision 40mm N [id number] Ea - [id number] N/A: CERVICAL SPINE MEDTRONIC [id number] / Implanted: Qty: 1 on 06/18/2017 by Tristian Rhodes MD at [facility] / Description:Verified and acknowledged by Dr. Rhodes. Lead Interstim Test Stim N 3059-01 Ea1 - [id number] MEDTRONIC 08/31/2019 3059- / Implanted: Qty: 1 on 06/10/2018 by Karan Smith MD at [facility] / [id number] Lead Interstim 28cm N 3889- Ea1 - [id number] N/A: SACRUM COCCYX MEDTRONIC 07/15/2021 [id number] / Implanted: Qty: 1 on 06/18/2018 by Karan Smith MD at [facility] / [id number] Description:implant verified by Dr. Dillon quezada. Neurostimulator Interstim Ii N 3058 Ea1 - [id number] Right: BUTTOCKS MEDTRONIC 06/03/2019 3058 / Implanted: Qty: 1 on 06/18/2018 by Karan Smith MD at [facility] [id number] / Description:implant verified by Dr. Dillon lutz - device removed documented as of this encounter Visit Diagnoses Diagnosis Other dysphagia - Primary Epigastric pain Abdominal pain, epigastric documented in this encounter
[~2020-11-04] MED LIST: Glycopyrrolate 0.2 MG/ML SDV ONE; Lidocaine 2% 5 ML SDV ONE; Midazolam 1 MG/ML 2 ML SDV ONE; Propofol 200 MG/20 ML SDV ONE; Sodium Chloride 0.9% 10 ML Syringe FLUSH PRN
[2020-11-04] MEDS: Lactated Ringers 1,000 ML IV SCH (10:00)
--- NOTE | 2020-11-04 10:44 | PCM.PN ---
- General Info Date of Service: 11/04/20 - Review of Systems Systems Review Comment:: 69-year-old female referred by Edwina Ramirez for EGD. She has a history of postprandial upper abdominal pain and dysphagia. She is medically stable to proceed today. Her recent history and physical is reviewed and no significant changes are noted. I have discussed the proposed EGD with the patient. Her questions were answered and she agrees to proceed. - Patient Data Vitals - Most Recent: Last Vital Signs Temp 98.1 F 11/04/20 09:52 Pulse 52 L 11/04/20 09:52 Resp 16 11/04/20 09:52 BP 130/88 11/04/20 09:52 Pulse Ox 100 11/04/20 09:52 Weight - Most Recent: 78.925 kg Med Orders - Current: Current Medications Lactated Ringer's (Ringers, Lactated) 1,000 mls @ 125 mls/hr IV ASDIRECTED GOKUL Last Admin: 11/04/20 10:00 Dose: 125 mls/hr Documented by: Sodium Chloride (Sodium Chloride 0.9% 10 Ml Syringe) 10 ml FLUSH ASDIRECTED PRN PRN Reason: Keep Vein Open Discontinued Medications Midazolam HCl (Midazolam 1 Mg/Ml 2 Ml Sdv) Confirm Administered Dose 2 mg .ROUTE .STK-MED ONE Stop: 11/04/20 08:47 Propofol (Propofol 200 Mg/20 Ml Sdv) Confirm Administered Dose 200 mg .ROUTE .STK-MED ONE Stop: 11/04/20 08:47 Sepsis Event Note - Focused Exam Vital Signs: Vital Signs Temp Pulse Resp BP Pulse Ox 11/04/20 09:52 98.1 F 52 L 16 130/88 100 - Problem List Review Problem List Initiated/Reviewed/Updated: Yes - My Orders Last 24 Hours: My Active Orders 11/04/20 09:45 Patient Status [ADT] Routine Peripheral IV Care [RC] . DIRECTED Verify Patient Consent Obtain [RC] ASDIRECTED Lactated Ringers [Ringers, Lactated] 1,000 ml IV ASDIRECTED Sodium Chloride 0.9% [Saline Flush] 10 ml FLUSH ASDIRECTED PRN Peripheral IV Insertion Adult [OM.PC] Routine - Assessment Assessment:: Epigastric pain Dysphagia - Plan Plan:: EGD
--- NOTE | 2020-11-04 11:07 | PCM.OPNOTE ---
- General Post-Op/Procedure Note Date of Surgery/Procedure: 11/04/20 Operative Procedure(s): EGD with Biopsy Findings: Mild gastritis in gastric antrum Slight irregularity of Z-line Pre Op Diagnosis: Epigastric pain Post-Op Diagnosis: Gastritis Anesthesia Technique: MAC Primary Surgeon: Herber Cheema Pathology: Biopsies of Duodenum, Antrum, and GE Jct EBL in mLs: 2 Complications: None Condition: Good
--- NOTE | 2020-11-04 12:57 | OR ---
Date of Procedure: 11/04/2020 PREOPERATIVE DIAGNOSIS: Upper abdominal pain. POSTOPERATIVE DIAGNOSIS: Gastritis. OPERATION PERFORMED: Esophagogastroduodenoscopy with biopsy. INDICATIONS FOR SURGERY: This 69-year-old female has had a several week history of postprandial upper abdominal pain. The episodes have at times been quite severe and she comes for diagnostic upper endoscopy. FINDINGS: No ulcers or other serious abnormalities are seen. There is mild hyperemia of the gastric antrum suggestive of gastritis, but no erosions or other lesions are seen. The patient's duodenum appears normal. There is minimal irregularity of the GE junction, but without visible acute inflammation and the remainder of the esophagus appears normal. DESCRIPTION OF PROCEDURE: The patient was taken to the operating room. She was given intravenous sedation, and with her in the left lateral decubitus position, the Olympus gastroscope was advanced through a mouth guard into the oral cavity. Under direct visualization, the scope was then advanced through the oropharynx down into the esophagus and then through the esophagus, stomach, and into the duodenum, where examination to the fourth portion was performed. The duodenum appeared normal. Because of the patient's symptoms, random biopsies of the duodenum were taken. The scope was withdrawn back into the stomach where full examination including retroflexed examination of the fundus was carried out. Random biopsies of the antrum were taken to rule out H. pylori. The GE junction was then carefully examined and biopsies of this were also taken because of the mild irregularity here. The esophagus was then re-examined as the scope was removed. The patient was then taken from the operating room in satisfactory condition. ESTIMATED BLOOD LOSS: 2 mL. COMPLICATIONS: None. PROGNOSIS: Good. PARAS Cheema MD /[id number]
[2020-11-04 13:15] VITALS: BP 129/80; PULSE 62
== END | disposition home or self-care (01) ==
LOC: LL.SDS 09:29
PROVIDERS: ATTEND Surgery
DX: K20.90 Esophagitis, unspecified without bleeding (principal); K29.70 Gastritis, unspecified, without bleeding; K31.89 Other diseases of stomach and duodenum; Z79.899 Other long term (current) drug therapy; I10 Essential (primary) hypertension; E78.00 Pure hypercholesterolemia, unspecified; M19.90 Unspecified osteoarthritis, unspecified site; E66.9 Obesity, unspecified; Z68.30 Body mass index [BMI] 30.0-30.9, adult; Z88.1 Allergy status to other antibiotic agents; Z88.8 Allergy status to other drugs, medicaments and biological substances
CPT/HCPCS: 00731; 88305; 88342; J2250; J2704; J3490; J7120

== ENCOUNTER 2021-07-15 09:17 | Emergency (ER) | payer MEDICARE, OTHER ==
[2021-07-15] MEDS ORDERED: Sodium Chloride 0.9% 10 ML Syringe FLUSH PRN (09:28)
[2021-07-15] MEDS ORDERED: Lactated Ringers 1,000 ML IV ONE (09:28)
[2021-07-15] MEDS ORDERED: Ondansetron 4 MG/2 ML SDV IV ONE (09:29)
[2021-07-15] MEDS ORDERED: Dicyclomine 20 MG Tab PO STA (09:29)
[2021-07-15 10:02] LABS: ANION GAP 11.2 meq/L (7-15)
[2021-07-15] MEDS ORDERED: Iopamidol 612 MG/ML 100 ML Bottle ONE (10:28)
[2021-07-15 12:01] LABS: CORONAVIRUS COVID-19 NAA NEGATIVE (NEGATIVE); RESPIRATORY SYNCYTIAL VIR NAA NEGATIVE (NEGATIVE)
[2021-07-15 19:28] VITALS: BP 142/84; PULSE 75
== END 2021-07-15 12:55 | disposition home or self-care (01) ==
LOC: LL.ED 09:17
DX: K52.9 Noninfective gastroenteritis and colitis, unspecified (principal); R91.1 Solitary pulmonary nodule; I10 Essential (primary) hypertension; I25.119 Atherosclerotic heart disease of native coronary artery with unspecified angina pectoris; J44.9 Chronic obstructive pulmonary disease, unspecified; E78.00 Pure hypercholesterolemia, unspecified; K21.9 Gastro-esophageal reflux disease without esophagitis; E66.9 Obesity, unspecified; Z68.30 Body mass index [BMI] 30.0-30.9, adult; Z88.0 Allergy status to penicillin; Z88.5 Allergy status to narcotic agent; Z88.8 Allergy status to other drugs, medicaments and biological substances; Z79.899 Other long term (current) drug therapy; Z20.822 Contact with and (suspected) exposure to COVID-19
CPT/HCPCS: 0241U; 36415; 74177; 80053; 81003; 83605; 83690; 83735; 84484; 85025; 86140; 93005; 93010; 96374; 99284-25; 99285; A9270-GY; J2405; J7120; Q9967

== ENCOUNTER 2021-07-16 18:48 | Emergency (ER) | payer MEDICARE, OTHER ==
[2021-07-16] MEDS ORDERED: Sodium Chloride 0.9% 10 ML Syringe FLUSH PRN (19:20)
[2021-07-16] MEDS: diphenhydrAMINE 50 MG/ML SDV IVPUSH ONE (19:31)
[2021-07-16] MEDS: Ketorolac 30 MG/ML SDV IVPUSH ONE (19:32)
[2021-07-16] MEDS: Haloperidol Lactate 5 MG/ML SDV IVPUSH ONE (19:33)
[2021-07-16] MEDS: Lactated Ringers 1,000 ML IV ONE (19:34)
[2021-07-16 20:07] VITALS: BP 164/94; PULSE 60
[2021-07-16] MEDS: Cholestyramine/Sucrose Powder 4 GM Packet PO ONE (21:07)
[2021-07-16] MEDS: Loperamide 2 MG Tab PO ONE (21:08)
[2021-07-16 21:16] LABS: CHLORIDE,CL 105 mmol/L (98-107); SODIUM,NA 140 mmol/L (136-145)
[2021-07-16 21:17] LABS: ANION GAP 15.8 meq/L (7-15)
[2021-07-16] MEDS: Potassium Chloride Riders 10 MEQ in Premix Bag 1 BAG IV ONE (21:26)
[2021-07-16] MEDS ORDERED: Potassium Chloride 20 MEQ Tab.ER PO ONE (21:48)
== END 2021-07-16 22:45 | disposition home or self-care (01) ==
LOC: LL.ED 18:48
DX: R51.9 Headache, unspecified (principal); E86.0 Dehydration; E87.6 Hypokalemia; R19.7 Diarrhea, unspecified; E78.00 Pure hypercholesterolemia, unspecified; I10 Essential (primary) hypertension; K21.9 Gastro-esophageal reflux disease without esophagitis; E66.9 Obesity, unspecified; Z68.30 Body mass index [BMI] 30.0-30.9, adult; Z88.0 Allergy status to penicillin; Z88.8 Allergy status to other drugs, medicaments and biological substances; Z79.899 Other long term (current) drug therapy
CPT/HCPCS: 36415; 70450; 80053; 81001; 83605; 83690; 83735; 85025; 87045; 87046; 87324; 87493; 96365; 96375; 99284; 99284-25; A9270-GY; J1200; J1630; J1885; J3480; J7120

== ENCOUNTER 2023-06-16 21:23 | Emergency (ER) | payer MEDICARE, OTHER ==
[2023-06-16] MEDS: Ketorolac 30 MG/ML SDV IM ONE (22:45)
[2023-06-16 22:51] LABS: APPEARANCE,URINE SLIGHTLY CLOUDY; BILIRUBIN,URINE MODERATE (NEGATIVE); COLOR,URINE DARK YELLOW; GLUCOSE,URINE NEGATIVE (NEGATIVE); KETONES,URINE 15 mg/dL (NEGATIVE); LEUKOCYTE ESTERASE,URINE TRACE (NEGATIVE); NITRITE,URINE NEGATIVE (NEGATIVE); OCCULT BLOOD,URINE NEGATIVE (NEGATIVE); PROTEIN,URINE 30 mg/dL (NEGATIVE); UROBILINOGEN,URINE 0.2 E.U./dL (0.2-1.0)
[2023-06-16 22:59] LABS: BACTERIA,URINE MODERATE /HPF (NONE TO FEW); EPITHELIAL CELLS,URINE FEW /LPF; HYALINE CASTS,URINE MODERATE; MUCUS,URINE MANY /LPF (NEGATIVE); RBC,URINE 0-5 /HPF
[2023-06-16] MEDS: Take Home: Nitrofurantoin Monohydrate/Macrocrystalline 100 MG, 6 Cap Pack PO ONE (23:24)
[2023-06-16 23:34] VITALS: BP 133/97; PULSE 85
== END 2023-06-16 23:30 | disposition home or self-care (01) ==
LOC: LL.ED 21:23
DX: K52.9 Noninfective gastroenteritis and colitis, unspecified (principal); N30.00 Acute cystitis without hematuria; M79.2 Neuralgia and neuritis, unspecified; I10 Essential (primary) hypertension; E78.00 Pure hypercholesterolemia, unspecified; I25.10 Atherosclerotic heart disease of native coronary artery without angina pectoris; K21.9 Gastro-esophageal reflux disease without esophagitis; J44.9 Chronic obstructive pulmonary disease, unspecified; Z86.16 Personal history of COVID-19; Z79.899 Other long term (current) drug therapy; Z88.0 Allergy status to penicillin; Z88.5 Allergy status to narcotic agent; Z88.8 Allergy status to other drugs, medicaments and biological substances
CPT/HCPCS: 81001; 87086; 96372; 99284; A9270; J1885

== ENCOUNTER 2024-12-27 14:09 | Emergency (ER) | payer MEDICARE, MEDICAID ==
[2024-12-27 14:19] VITALS: BP 129/88; PULSE 76
[2024-12-27 14:26] LABS: BASOPHILS ABSOLUTE AUTO 0.05 K/uL (0.00-0.20); BASOPHILS PERCENT AUTO 0.5 % (0.0-2.0); EOSINOPHILS ABSOLUTE AUTO 0.16 K/uL (0.00-0.50); EOSINOPHILS PERCENT AUTO 1.6 % (0.0-5.0); IMMATURE GRAN ABSOLUTE AUTO 0.02 10^3/uL (0.00-0.04); IMMATURE GRAN PERCENT AUTO 0.2 % (0.0-0.4); LYMPHOCYTES ABSOLUTE AUTO 1.64 K/uL (0.50-3.50); LYMPHOCYTES PERCENT AUTO 16.8 % (10.0-50.0); MONOCYTES ABSOLUTE AUTO 0.82 K/uL (0.00-1.00); MONOCYTES PERCENT AUTO 8.4 % (2.0-14.0); NEUTROPHILS ABSOLUTE AUTO 7.08 K/uL (1.40-7.00); NEUTROPHILS PERCENT AUTO 72.5 % (45.0-80.0); PLATELET COUNT,PLT 223 K/uL (150-350); RED BLOOD CELL COUNT 3.92 M/uL (3.77-5.09); RED CELL DISTRIBUTION WIDTH 13.8 % (11.2-14.1); WHITE BLOOD CELL COUNT,WBC 9.8 K/uL (4.0-10.2)
[2024-12-27 14:42] LABS: ALANINE AMINOTRANSFERASE,ALT 17 U/L (12-78); ASPARTATE AMNIOTRANSFERASE,AST 18 U/L (15-37); BILIRUBIN TOTAL 0.3 mg/dL (0.2-1.0); BLOOD UREA NITROGEN,BUN 15 mg/dL (7-18); CARBON DIOXIDE,CO2 26.6 mmol/L (21.0-32.0); CHLORIDE,CL 107 mmol/L (98-107); CREATININE 1.32 mg/dL (0.51-1.17); GLUCOSE RANDOM 103 mg/dL (70-99); POTASSIUM,K 4.1 mmol/L (3.5-5.1); PROTEIN TOTAL,TP 6.6 g/dL (6.4-8.2); SODIUM,NA 144 mmol/L (136-145)
[2024-12-27 14:43] LABS: ESTIMATED GFR 43 mL/min (>=60)
[2024-12-27] MEDS: Ondansetron 4 MG/2 ML SDV IVPUSH ONE (15:52)
== END 2024-12-27 16:10 ==
LOC: LL.ED 14:09
DX: S09.93XA Unspecified injury of face, initial encounter (principal); I10 Essential (primary) hypertension; E78.00 Pure hypercholesterolemia, unspecified; I25.10 Atherosclerotic heart disease of native coronary artery without angina pectoris; Z79.899 Other long term (current) drug therapy; Z88.8 Allergy status to other drugs, medicaments and biological substances; W22.8XXA Striking against or struck by other objects, initial encounter
CPT/HCPCS: 36415; 70450; 70486; 71045; 72125; 72170; 74018; 80053; 85025; 96361; 96374; 99284; 99285-25; A9270-GY; J2405; J7030